=== PATIENT | male | born 1950 | race Two or more races ===

== ENCOUNTER 2018-12-27 12:00 | Inpatient (IN) | payer OTHER ==
[~2018-12-27] VITALS: Ht 162.6 cm; Wt 84.1 kg
[2018-12-27] MEDS ORDERED: SODIUM CHLORIDE 0.9% 1L BAG IV* STA (12:20)
[2018-12-27] MEDS ORDERED: IBUPROFEN 600 MG TAB PO ONE (12:30)
[2018-12-27] MEDS ORDERED: CEFTRIAXONE 1 GM/50 ML (PMX) 50 ML IVPB ONE (12:30)
[2018-12-27] MEDS ORDERED: SITA50TA2 PO (13:19)
[2018-12-27] MEDS ORDERED: LOSA25TA12 PO (13:20)
[2018-12-27] MEDS ORDERED: FENO160T13 PO (13:21)
[2018-12-27] MEDS ORDERED: OMEP20CA16 PO (13:21)
[2018-12-27] MEDS ORDERED: OXCA300T3 PO (13:22)
[2018-12-27] MEDS ORDERED: TOPI100T PO (13:23)
[2018-12-27] MEDS ORDERED: METO-319 PO (13:24)
[2018-12-27] MEDS ORDERED: ALEN70TA5 PO (13:24)
[2018-12-27] MEDS ORDERED: FINA5TAB4 PO (13:24)
[2018-12-27] MEDS ORDERED: MAGN400T28 PO (13:26)
[2018-12-27] MEDS ORDERED: POTASSIUM 595MG PO (13:26)
[2018-12-27] MEDS ORDERED: CHOL200056 PO (13:27)
[2018-12-27] MEDS ORDERED: MULTI PO (13:29)
[2018-12-27] MEDS ORDERED: B COMPLEX PO (13:29)
[2018-12-27] MEDS ORDERED: LACT1CAP52 PO (13:30)
[2018-12-27] MEDS ORDERED: OMEG1CAP90 PO (13:30)
[2018-12-27] MEDS ORDERED: [UNRECOGNIZED DRUG - OTHER] PO (13:32)
[2018-12-27] MEDS ORDERED: INUL1TAB4 PO (13:34)
--- NOTE | 2018-12-27 14:06 | ERD ---
ER Documentation Chief Complaint Chief Complaint SHAKINESS ALL NIGHT AND SOB - HX OF A FIB HPI 68-year-old man complains of tactile fever and chills since last night, patient has a history of atrial fibrillation and also complains of palpitations. He denies chest pain, no URI symptoms, no abdominal pain, no vomiting or diarrhea, no blood per rectum or melena. ROS All systems reviewed and are negative except as per history of present illness. Medications Home Meds Reported Medications Inulin/Chromium Picolinate (Fiber Gummies) 1 Each Tab.chew, 1 EACH PO DAILY, TAB.CHEW 12/27/18 [Herbal Prostate] No Conflict Check, 2 TAB PO DAILY 12/27/18 Lactobacillus Combo No.10 (Probiotic) 1 Each Capsule, 1 CAP PO DAILY, CAP 12/27/18 [place]-3 Fatty Acids/Fish Oil ([place] 3 1,000 mg Softgel) 1 Each Capsule, 1 EACH PO DAILY, CAP 12/27/18 Multivitamins* (Theragran*) 1 Tab Tab, 1 TAB PO DAILY, TAB 12/27/18 [B Complex 50MG] No Conflict Check, 1 TAB PO DAILY 12/27/18 Cholecalciferol (Vitamin D3) (Vitamin D-3) 2,000 Unit Tablet, 2000 UNIT PO DAILY, TAB 12/27/18 Magnesium Oxide* (Magnesium Oxide*) 400 Mg Tablet, 400 MG PO DAILY, TAB 12/27/18 [Potassium 595MG] No Conflict Check, 1 TAB PO BID 12/27/18 Finasteride* (Finasteride*) 5 Mg Tablet, 5 MG PO DAILY, TAB 12/27/18 Alendronate Sodium* (Fosamax*) 70 Mg Tablet, 70 MG PO Q7D, #4 TAB 12/27/18 Metoprolol Succinate* (Toprol XL*) 50 Mg Tab.er.24h, 50 MG PO DAILY, #30 TAB 12/27/18 Topiramate* (Topamax*) 100 Mg Tablet, 200 MG PO BID, TAB 12/27/18 Oxcarbazepine* (Trileptal*) 300 Mg Tablet, 900 MG PO BID, TAB 12/27/18 Omeprazole* (Omeprazole*) 20 Mg Capsule.dr, 20 MG PO BID, #60 CAP 12/27/18 Fenofibrate, Micronized* (Fenofibrate*) 160 Mg Tablet, 160 MG PO DAILY, TAB 12/27/18 Losartan Potassium* (Losartan Potassium*) 25 Mg Tablet, 25 MG PO DAILY, TAB 12/27/18 Sitagliptin* (Januvia*) 50 Mg Tablet, 50 MG PO DAILY, #30 TAB 12/27/18 Allergies Allergies: Coded Allergies: No Known Allergy (Unverified , 12/27/18) PMhx/Soc Hypertension, atrial fibrillation, BPH, gastritis History of Surgery: Yes (APPENDECTOMY , prostate surgery ) Anesthesia Reaction: No Hx Neurological Disorder: Yes (epilepsy ) Hx Respiratory Disorders: No Hx Cardiac Disorders: Yes (high cholesterol , htn , irregular heart beat ) Hx Psychiatric Problems: No Hx Miscellaneous Medical Probl: Yes (anxiety , dm , osteoporosis , ) Hx Alcohol Use: No Hx Substance Use: No Hx Tobacco Use: No (quit 15 yrs ago ) Smoking Status: Former smoker FmHx Family History: No diabetes Physical Exam Vitals Vital Signs Date Temp Pulse Resp B/P (MAP) Pulse Ox O2 O2 Flow FiO2 Time Delivery Rate 12/27/18 120 18 93/79 (84) 98 Nasal 2.0 15:30 Cannula 12/27/18 99.2 118 18 82/77 (79) 99 Nasal 2.0 15:00 Cannula 12/27/18 120 18 86/69 (75) 99 Nasal 2.0 14:30 Cannula 12/27/18 119 18 87/66 (73) 99 Nasal 2.0 14:00 Cannula 12/27/18 128 18 95/72 (80) 99 Nasal 2.0 12:45 Cannula 12/27/18 Nasal 2 12:27 Cannula 12/27/18 100.8 161 24 166/79 97 12:04 (108) Physical Exam Const: No acute distress, febrile HEENT: Dry mucous membranes, pink conjunctive a, no cervical spine deformity, no Kernig sign Resp: Lungs clear, no wheezing crackles or stridor Cardio: Tachycardic and regular, no murmurs Abd: Soft, non tender, no guarding or masses palpated Skin: No petechiae or rashes no ecchymosis, no hematomas Back: No midline or flank tenderness Ext: No cyanosis, or edema, calves symmetrical Neur: Awake and alert x3, no focal deficits or facial asymmetry, pupils equal round reactive to light Psych: Normal Mood and Affect Result Diagram: 12/27/18 1234 12/27/18 1234 Results 24 hrs Laboratory Tests Test 12/27/18 12:23 12/27/18 12:34 12/27/18 14:17 POC Venous Lactate 2.2 mmol/L 1.1 mmol/L White Blood Count 30.5 10^3/ul Red Blood Count 5.39 10^6/ul Hemoglobin 17.3 g/dl Hematocrit 51.8 % Mean Corpuscular Volume 96.1 fl Mean Corpuscular Hemoglobin 32.1 pg Mean Corpuscular Hemoglobin Concent 33.4 g/dl Red Cell Distribution Width 13.2 % Platelet Count 254 10^3/UL Mean Platelet Volume 10.1 fl Immature Granulocytes % 0.800 % Neutrophils % % Segmented Neutrophils % (Manual) 74 % Band Neutrophils % (Manual) 7 % Lymphocytes % % Lymphocytes % (Manual) 6 % Reactive Lymphocytes % (Manual) 1 % Monocytes % % Monocytes % (Manual) 12 % Eosinophils % % Basophils % % Nucleated Red Blood Cells % 0.0 /100WBC Immature Granulocytes # 0.230 10^3/ul Neutrophils # 10^3/ul Neutrophils # (Manual) 23.2 10^3/ul Band Neutrophils # 2.1 10^3/ul Lymphocytes (Manual) 1.8 10^3/ul Lymphocytes # 10^3/ul Reactive Lymphocytes # 0.3 10^3/ul Monocytes # 10^3/ul Monocytes # (Manual) 3.6 10^3/ul Eosinophils # 10^3/ul Basophils # 10^3/ul Nucleated Red Blood Cells # 10^3/ul Platelet Estimate NORMAL Polychromasia 3+ Anisocytosis 2+ Microcytosis 2+ Prothrombin Time 15.1 Sec Prothrombin Time Ratio 1.2 INR International Normalized Ratio 1.18 Activated Partial Thromboplast Time 29.7 Sec Urine Color BLUE Urine Clarity CLOUDY Urine pH 5.0 Urine Specific [place] 1.021 Urine Ketones TRACE mg/dL Urine Nitrite NEGATIVE mg/dL Urine Bilirubin NEGATIVE mg/dL Urine Urobilinogen NEGATIVE mg/dL Urine Leukocyte Esterase 2+ Gricelda/ul Urine Microscopic RBC 77 /HPF Urine Microscopic WBC > 182 /HPF Urine Squamous Epithelial Cells FEW /HPF Urine Mucus MANY /HPF Urine Hemoglobin 1+ mg/dL Urine Glucose NEGATIVE mg/dL Urine Total Protein 2+ mg/dl Sodium Level 142 mmol/L Potassium Level 4.8 mmol/L Chloride Level 109 mmol/L Carbon Dioxide Level 20 mmol/L Anion Gap 13 Blood Urea Nitrogen 20 mg/dl Creatinine 1.56 mg/dl Est Glomerular Filtrat Rate mL/min 45 mL/min Glucose Level 125 mg/dl Calcium Level 9.3 mg/dl Total Bilirubin 1.0 mg/dl Direct Bilirubin 0.00 mg/dl Indirect Bilirubin 1.0 mg/dl Aspartate Amino Transf (AST/SGOT) 30 IU/L Alanine Aminotransferase (ALT/SGPT) 22 IU/L Alkaline Phosphatase 100 IU/L Troponin I 0.047 ng/ml Total Protein 8.2 g/dl Albumin 4.4 g/dl Globulin 3.80 g/dl Albumin/Globulin Ratio 1.15 Lipase 61 U/L Current Medications Medications Dose Sig/Zoey Start Time Status Last (Trade) Ordered Route PRN Stop Time Admin Dose Reason Admin Sodium 3,000 ml BOLUS OVER 2 12/27/18 DC 12/27/18 Chloride HOURS STAT 12:20 12/27/18 12:35 (NS) IV* 12:30 Ibuprofen 600 mg ONCE ONCE 12/27/18 DC 12/27/18 (Motrin) PO 12:30 12/27/18 12:35 12:31 Ceftriaxone 50 ml @ ONCE ONCE 12/27/18 DC 12/27/18 Sodium 100 mls/hr IVPB 12:30 12/27/18 12:35 12:59 Sodium 1,000 ml @ Q1H ONCE 12/27/18 DC 12/27/18 Chloride 1,000 mls/hr IV 15:30 12/27/18 15:37 16:29 Sodium 1,000 ml @ Q10H IV 12/27/18 Chloride 100 mls/hr 15:53 IV Flush 3 ml PER 12/27/18 (NS 3 ml) PROTOCOL IV 16:00 Ondansetron 4 mg Q6H PRN 12/27/18 HCl (Zofran IV 16:00 Inj) NAUSEA/VOMITI NG 650 mg Q6H PRN 12/27/18 Acetaminophen PO .PAIN 1-3 16:00 (Tylenol OR TEMP Tab) 1 tab Q6H PRN 12/27/18 Acetaminophen PO .MOD PAIN 16:00 / 4-6 Hydrocodone Bitart ([place] (5/325)) Morphine 2 mg Q4H PRN 12/27/18 Sulfate IV .SEVERE 16:00 (morphine) PAIN 7-10 Docusate 100 mg Q12H PRN 12/27/18 Sodium PO 16:00 (Colace) .CONSTIPATION Zolpidem 5 mg QHS PRN 12/27/18 Tartrate PO .INSOMNIA 16:00 (Ambien) Ceftriaxone 50 ml @ Q24H IVPB 12/28/18 Sodium 100 mls/hr 12:00 Finasteride 5 mg DAILY PO 12/28/18 (Proscar) 09:00 Losartan 25 mg DAILY PO 12/28/18 Potassium 09:00 (Cozaar) Magnesium 400 mg DAILY PO 12/28/18 Oxide 09:00 (Mag-Ox 400) 1 tab DAILY PO 12/28/18 Multivitamins 09:00 Therapeutic (Theragran) 900 mg BID PO 12/27/18 Oxcarbazepine 21:00 (Trileptal) Topiramate 200 mg BID PO 12/27/18 (Topamax) 21:00 2,000 unit DAILY PO 12/28/18 DC Miscellaneous 09:00 12/28/18 Information 09:00 2,000 unit DAILY PO 12/28/18 Cholecalcifer 09:00 ol (Vitamin D) Procedures/MDM IV line was established patient was placed on school lunch monitor rhythm strip revealed a narrow complex tachycardia at 160 bpm with upright P and T waves. Patient was febrile, blood and urine cultures have been ordered results are pending I will follow-up EKG performed, read by me revealed supraventricular tachycardia at 158 bpm, normal axis, narrow QRS complex, no concerning ST elevations or depressions noted Chest X-ray 1V Interpreted by me: Soft Tissue: No acute abnormalities Bones: No acute abnormalities Mediastinum/Cardiac Silhouette/Lungs: No acute abnormalities I administered 4 L normal saline IV, ibuprofen 600 mg p.o. for fever, ceftriaxone 1 g IV CBC reveals a leukocytosis of 31, electrolytes revealed dehydration and acute kidney injury with a BUN/creatinine of 20/1.6, liver function tests normal, troponin negative, lactic acid elevated at 2.2, urine analysis positive for inf ection After 4 L normal saline, patient's SVT converted spontaneously. Patient has a normal sinus rhythm at 77 bpm at this time, normal axis, narrow QRS complex, no concerning ST elevations or depressions noted Patient's infectious symptoms have not stabilized and the patient is at risk of rapid decompensation. The patient will be admitted for careful hydration, antibiotic therapy, and infectious source control. SEVERE SEPSIS CRITERIA: Infectious source: Urinary tract infection End organ damage indicated by: [Lactate > 2.0 mmol/L Hypotension (SBP < 90 or >40 mmHG drop or MAP < 65) SEPSIS MANAGEMENT Time of recognition of sepsis: Upon arrival. Time of recognition of severe sepsis: No severe sepsis at this time. Time of recognition of septic shock: No septic shock at this time. 3 HOUR BUNDLE Blood cultures x 2 before broad-spectrum antibiotics: Yes 30 ml/kg NS bolus completed Initial lactate 2.2 Repeat lactate 1.1 SEPTIC SHOCK ASSESSMENT: No lactic acid > 4.0 No persistent hypotension (SBP < 90 or 40 mmHg drop, MAP < 65) despite 30 mL/kg IV fluid bolus VOLUME REASSESSMENT FOR SEPTIC SHOCK: Reevaluation Time: 1400 Temp 99 F, pulse 120 bpm, blood pressure 90/60 mmHg, oxygen saturation 100% Heart tachycardic and regular Lungs no crackles Skin warm & dry Cap Refill less than 2 seconds Peripheral pulses radially present PERSISTENT HYPOTENSION TREATMENT: Comfort care no Central line not Required Vasopressor started not required I considered further perfusion assessment with CVP measurement, SCVO2, bedside ultrasound volume assessment, passive leg raise, trial of further fluid bolus. And proceeded with 30 ml/kg fluid bolus of NSS, broad spectrum antibiotics, and admission. CRITICAL CARE: Critical care time 35 minutes, this was time separate from other billable proc edures. Emergent fluid management while maintaining close respiratory support. Provision of immediate and broad-spectrum antibiotic therapy. Simultaneous assessment for possible sources in order to direct targeted therapy. Consideration for invasive and chemical support to prevent cardiopulmonary collapse. Critical care time is independent of procedures performed. Accepting Care Team: Current data and ongoing care discussed. Time: Time of admission Primary Provider: Hospitalist Consulting: Infectious disease Outstanding Data: none Departure Diagnosis: Primary Impression: Sepsis Sepsis type: sepsis due to unspecified organism Qualified Codes: A41.9 - Sepsis, unspecified organism Additional Impressions: Acute UTI Acute dehydration SVT (supraventricular tachycardia) Condition: AMPARO Delong MD December 27, 2018 14:06
[2018-12-27] MEDS ORDERED: SOD CHLORIDE 0.9% 1,000 ML IV ONE (15:30)
[2018-12-27] MEDS ORDERED: ZOLPIDEM 5 MG TAB PO PRN (16:00)
[2018-12-27] MEDS ORDERED: ONDANSETRON 4 MG INJ IV PRN (16:00)
[2018-12-27] MEDS ORDERED: NACL 0.9% 3 ML SYG IV SCH (16:00)
[2018-12-27] MEDS ORDERED: DOCUSATE SODIUM 100 MG CAP PO PRN (16:00)
[2018-12-27] MEDS ORDERED: morphine 2 MG INJ IV PRN (16:00)
--- NOTE | 2018-12-27 16:38 | HP ---
Date/Time of Note Date/Time of Note DATE: 12/27/18 TIME: 16:33 Assessment/Plan VTE Prophylaxis SCD applied (from Nsg): Yes Pharmacological prophylaxis: NA/contraindicated Pharm contraindication: low risk/ambulating Lines/Catheters IV Catheter Type (from Nrsg): Saline Lock Assessment/Plan Hospital Course 1. Severe sepsis secondary to UTI Empiric Rocephin IV fluids Follow-up on cultures 2. History of BPH status post TURP 2 months ago Patient has had decreased urine output since a TURP Patient does follow-up with his urologist as an outpatient and last saw him yesterday, patient was noted to have a clot and irrigation was reportedly done in the office with patient developing significant pain Inpatient urological consultation Renal ultrasound to evaluate for hydronephrosis 3. Acute versus chronic kidney disease secondary to sepsis and/or obstruction IV fluids Renal ultrasound Defer need for Lua catheter placement to urology 4. Prediabetes Carb controlled diet Prophylaxis: SCDs Result Diagram: 12/27/18 1234 12/27/18 1234 Results 24hrs Laboratory Tests Test 12/27/18 12:23 12/27/18 12:34 12/27/18 14:17 POC Venous Lactate 2.2 *H 1.1 White Blood Count 30.5 H Red Blood Count 5.39 Hemoglobin 17.3 Hematocrit 51.8 Mean Corpuscular Volume 96.1 Mean Corpuscular Hemoglobin 32.1 Mean Corpuscular Hemoglobin Concent 33.4 Red Cell Distribution Width 13.2 Platelet Count 254 Mean Platelet Volume 10.1 Immature Granulocytes % 0.800 H Neutrophils % Segmented Neutrophils % (Manual) 74 Band Neutrophils % (Manual) 7 H Lymphocytes % Lymphocytes % (Manual) 6 L Reactive Lymphocytes % (Manual) 1 H Monocytes % Monocytes % (Manual) 12 H Eosinophils % Basophils % Nucleated Red Blood Cells % 0.0 Immature Granulocytes # 0.230 H Neutrophils # Neutrophils # (Manual) 23.2 H Band Neutrophils # 2.1 H Lymphocytes (Manual) 1.8 Lymphocytes # Reactive Lymphocytes # 0.3 H Monocytes # Monocytes # (Manual) 3.6 H Eosinophils # Basophils # Nucleated Red Blood Cells # Platelet Estimate NORMAL Polychromasia 3+ Anisocytosis 2+ Microcytosis 2+ Prothrombin Time 15.1 H Prothrombin Time Ratio 1.2 INR International Normalized Ratio 1.18 Activated Partial Thromboplast Time 29.7 Urine Color BLUE Urine Clarity CLOUDY A Urine pH 5.0 Urine Specific [place] 1.021 Urine Ketones TRACE A Urine Nitrite NEGATIVE Urine Bilirubin NEGATIVE Urine Urobilinogen NEGATIVE Urine Leukocyte Esterase 2+ H Urine Microscopic RBC 77 H Urine Microscopic WBC > 182 H Urine Squamous Epithelial Cells FEW Urine Mucus MANY A Urine Hemoglobin 1+ H Urine Glucose NEGATIVE Urine Total Protein 2+ H Sodium Level 142 Potassium Level 4.8 Chloride Level 109 Carbon Dioxide Level 20 L Anion Gap 13 Blood Urea Nitrogen 20 Creatinine 1.56 H Est Glomerular Filtrat Rate mL/min 45 L Glucose Level 125 Calcium Level 9.3 Total Bilirubin 1.0 Direct Bilirubin 0.00 Indirect Bilirubin 1.0 Aspartate Amino Transf (AST/SGOT) 30 Alanine Aminotransferase (ALT/SGPT) 22 Alkaline Phosphatase 100 Troponin I 0.047 Total Protein 8.2 H Albumin 4.4 Globulin 3.80 H Albumin/Globulin Ratio 1.15 Lipase 61 HPI/ROS Admit Date/Time Admit Date/Time December 27, 2018 Hx of Present Illness Patient is a 68-year-old male with a history of prediabetes and BPH status post TURP with Dr. Guanaco White 2 months ago. Patient states that since the TURP he has been urinating less, patient did see his urologist yesterday and reportedly had a clot in his urethra and bladder, patient had what sounds like irrigation done postop and patient became uncomfortable. Patient went home and developed fevers and chills as well as tachycardia, in the ER UA is consistent with a UTI and patient does have evidence of sepsis. Patient denies any suprapubic pain and is able to urinate a small amount, of note patient does not have a Lua catheter from home. Patient does report lower back pain which been present since the TURP 2 months ago. Patient has no other acute complaints at this time. ROS Constitutional: no complaints, improved Eyes: no complaints ENT: no complaints Respiratory: no complaints Cardiovascular: no complaints Gastrointestinal: no complaints Genitourinary: flank pain Musculoskeletal: no complaints Skin: no complaints Neurologic: no complaints Endocrine: no complaints Lymphatic: no complaints Psychological: no complaints, nl mood/affect Immunologic: no complaints PMH/Family/Social Past Medical History Prediabetes, BPH status post TURP Medications Current Medications Sodium Chloride 1,000 ml @ 100 mls/hr Q10H IV ; Start 12/27/18 at 15:53 IV Flush (NS 3 ml) 3 ml PER PROTOCOL IV ; Start 12/27/18 at 16:00 Ondansetron HCl (Zofran Inj) 4 mg Q6H PRN IV NAUSEA/VOMITING; Start 12/27/18 at 16:00 Acetaminophen (Tylenol Tab) 650 mg Q6H PRN PO .PAIN 1-3 OR TEMP; Start 12/27/18 at 16:00 Acetaminophen/ Hydrocodone Bitart ([place] (5/325)) 1 tab Q6H PRN PO .MOD PAIN 4- 6; Start 12/27/18 at 16:00 Morphine Sulfate (morphine) 2 mg Q4H PRN IV .SEVERE PAIN 7-10; Start 12/27/18 at 16:00 Docusate Sodium (Colace) 100 mg Q12H PRN PO .CONSTIPATION; Start 12/27/18 at 16:00 Zolpidem Tartrate (Ambien) 5 mg QHS PRN PO .INSOMNIA; Start 12/27/18 at 16:00 Ceftriaxone Sodium 50 ml @ 100 mls/hr Q24H IVPB ; Start 12/28/18 at 12:00 Finasteride (Proscar) 5 mg DAILY PO ; Start 12/28/18 at 09:00 Losartan Potassium (Cozaar) 25 mg DAILY PO ; Start 12/28/18 at 09:00 Magnesium Oxide (Mag-Ox 400) 400 mg DAILY PO ; Start 12/28/18 at 09:00 Multivitamins Therapeutic (Theragran) 1 tab DAILY PO ; Start 12/28/18 at 09:00 Oxcarbazepine (Trileptal) 900 mg BID PO ; Start 12/27/18 at 21:00 Topiramate (Topamax) 200 mg BID PO ; Start 12/27/18 at 21:00 Cholecalciferol (Vitamin D) 2,000 unit DAILY PO ; Start 12/28/18 at 09:00 Coded Allergies: No Known Allergy (Unverified , 12/27/18) Past Surgical History Appendectomy, TURP, tonsillectomy Family History Significant Family History: no pertinent family hx Social History Alcohol Use: rarely Smoking Status: Former smoker Drug Use: none Exam/Review of Systems Vital Signs Vitals Vital Signs Date Temp Pulse Resp B/P (MAP) Pulse Ox O2 O2 Flow FiO2 Time Delivery Rate 12/27/18 120 18 93/79 (84) 98 Nasal 2.0 15:30 Cannula 12/27/18 99.2 15:00 Exam Constitutional: alert, oriented Respiratory: clear to auscultation Cardiovascular: regular rate and rhythm Gastrointestinal: soft; No distended Musculoskeletal: nl extremities to inspection ALICIA LAINEZ December 27, 2018 16:38
[2018-12-27] MEDS ORDERED: SOD CHLORIDE 0.9% 1,000 ML IV STA (17:07)
[2018-12-27] MEDS: SOD CHLORIDE 0.9% 1,000 ML IV SCH (18:46)
[2018-12-27 20:00] VITALS: PULSE 74; Ht 162.6 cm; Wt 84.1 kg
[2018-12-27] MEDS ORDERED: LORAZEPAM 2 MG INJ IV PRN (22:00)
[2018-12-27] MEDS: TOPIRAMATE 100 MG TAB PO SCH (22:06)
[2018-12-27] MEDS: OXCARBAZEPINE 300 MG TAB PO SCH (22:06)
[2018-12-28] VITALS (14 sets, daily range): BP systolic 87–131; BP diastolic 52–82; PULSE 73–92; RESP 18–22
[2018-12-28] MEDS: ACETAMINOPHEN 325 MG TAB PO PRN ×2 (00:57→21:02)
[2018-12-28] MEDS: SOD CHLORIDE 0.9% 1,000 ML IV SCH ×3 (01:53→21:03)
[2018-12-28] MEDS: PANTOPRAZOLE (EC) 40 MG TAB PO SCH ×2 (05:46→17:41)
[2018-12-28] MEDS ORDERED: NON-FORMULARY/PATIENT OWN MED (Cholecalciferol (Vitamin D3) (Vitamin D-3) 2,000 UNIT) PO SCH (09:00)
[2018-12-28] MEDS: FISH OIL 1,000 MG CAP PO SCH (09:00)
[2018-12-28] MEDS: CHOLECALCIFEROL 2,000 UNIT CAP PO SCH (09:27)
[2018-12-28] MEDS: FINASTERIDE 5 MG TAB PO SCH (09:27)
[2018-12-28] MEDS: TOPIRAMATE 100 MG TAB PO SCH ×2 (09:27→21:02)
[2018-12-28] MEDS: MULTIVITAMINS THERAPEUTIC TAB PO SCH (09:27)
[2018-12-28] MEDS: LOSARTAN 25 MG TAB PO SCH (09:28)
[2018-12-28] MEDS: MAGNESIUM OXIDE 400 MG TAB PO SCH (09:28)
[2018-12-28] MEDS: OXCARBAZEPINE 300 MG TAB PO SCH ×2 (09:28→21:02)
[2018-12-28] MEDS: FENOFIBRATE 145 MG TAB PO SCH (09:35)
[2018-12-28] MEDS: HYDROCODONE/APAP (5/325) TAB PO PRN ×2 (09:43→16:04)
--- NOTE | 2018-12-28 11:19 | PN ---
Date/Time of Note Date/Time of Note DATE: 12/28/18 TIME: 11:17 Assessment/Plan VTE Prophylaxis Risk score (from Ns)>0 risk: 2 SCD applied (from Ns): Yes Pharmacological prophylaxis: NA/contraindicated Pharm contraindication: other (heamturia, blood clot re,merrill) Lines/Catheters IV C[facility] Type [facility]from [facility] Saline Lock Urinary Cath still in place: No Assessment/Plan Hospital Course Subjective: still with fever. Pain controlled by meds Objective: General: A&O x3, answering questions but very lethargic, warm to touch HEENT: NC/ AT. PERRL. EOM intact Neck: supple CVS: tachy. no murmurs. no pain on chest wall palpation Lungs: CTA b/l. no wheezing or rhonchi Abd: soft,mild suprapubic tenderness, +BS Ext: moving all extremities skin: no rashes Assessment and plan: 1. Sepsis secondary to urinary tract infection 2. Status post recent TURP 2 months ago for BPH with obstructive symptoms -Patient's procedure was complicated by reduced urinary output and severe pain, he was noted to have a clot and is status post in office irrigation and dilation the day prior to admission -Renal ultrasound was done and is unremarkable without evidence of calculi or obstructive uropathy. 3. Chronic seizure disorder -reported breakthrough seizures yesterday? 4. Acute renal insufficiency: Resolved 5. Hypophosphatemia 6. Chronic dyslipidemia 7. Hypertension with good control on losartan Plan Continue IV fluids Follow-up final urine cultures spoke with OP urologist Dr. White, patient was recently dilated in office, monitor PVR, only attempt de león if PVR is >250cc or patient not responding to therapy. otherwise, treat UTI and f/u with him in office o/p. Call anytime with questions [phone] Neurology consult EEG and seizure precautions Continue all other supportive care and pain control Further interventions per clinical course Result Diagram: 12/28/18 0811 12/28/18 0637 Results 24hrs Laboratory Tests Test 12/27/18 12:23 12/27/18 12:34 12/27/18 14:17 12/27/18 16:35 POC Venous Lactate 2.2 *H 1.1 White Blood Count 30.5 H Red Blood Count 5.39 Hemoglobin 17.3 Hematocrit 51.8 Mean Corpuscular Volume 96.1 Mean Corpuscular 32.1 Hemoglobin Mean Corpuscular 33.4 Hemoglobin Concent Red Cell Distribution 13.2 Width Platelet Count 254 Mean Platelet Volume 10.1 Immature Granulocytes % 0.800 H Neutrophils % Segmented Neutrophils 74 % (Manual) Band Neutrophils % 7 H (Manual) Lymphocytes % Lymphocytes % (Manual) 6 L Reactive Lymphocytes 1 H % (Manual) Monocytes % Monocytes % (Manual) 12 H Eosinophils % Basophils % Nucleated Red Blood 0.0 Cells % Immature Granulocytes # 0.230 H Neutrophils # Neutrophils # (Manual) 23.2 H Band Neutrophils # 2.1 H Lymphocytes (Manual) 1.8 Lymphocytes # Reactive Lymphocytes # 0.3 H Monocytes # Monocytes # (Manual) 3.6 H Eosinophils # Basophils # Nucleated Red Blood Cells # Platelet Estimate NORMAL Polychromasia 3+ Anisocytosis 2+ Microcytosis 2+ Prothrombin Time 15.1 H Prothrombin Time Ratio 1.2 INR International 1.18 Normalized Ratio Activated 29.7 Partial Thromboplast Time Urine Color BLUE Urine Clarity CLOUDY A Urine pH 5.0 Urine Specific [place] 1.021 Urine Ketones TRACE A Urine Nitrite NEGATIVE Urine Bilirubin NEGATIVE Urine Urobilinogen NEGATIVE Urine Leukocyte Esterase 2+ H Urine Microscopic RBC 77 H Urine Microscopic WBC > 182 H Urine Squamous FEW Epithelial Cells Urine Mucus MANY A Urine Hemoglobin 1+ H Urine Glucose NEGATIVE Urine Total Protein 2+ H Sodium Level 142 Potassium Level 4.8 Chloride Level 109 Carbon Dioxide Level 20 L Anion Gap 13 Blood Urea Nitrogen 20 Creatinine 1.56 H Est Glomerular Filtrat 45 L Rate mL/min Glucose Level 125 Calcium Level 9.3 Total Bilirubin 1.0 Direct Bilirubin 0.00 Indirect Bilirubin 1.0 Aspartate Amino 30 Transf (AST/SGOT) Alanine 22 Aminotransferase (ALT/SG PT) Alkaline Phosphatase 100 Troponin I 0.047 Total Protein 8.2 H Albumin 4.4 Globulin 3.80 H Albumin/Globulin Ratio 1.15 Lipase 61 Lactic Acid Level 0.8 Test 12/28/18 06:37 12/28/18 08:11 Sodium Level 143 Potassium Level 4.0 Chloride Level 117 H Carbon Dioxide Level 18 L Anion Gap 8 Blood Urea Nitrogen 14 Creatinine 0.91 Est Glomerular Filtrat > 60 Rate mL/min Glucose Level 82 # Hemoglobin A1c 4.7 Calcium Level 7.8 L Phosphorus Level 2.0 L Magnesium Level 1.8 White Blood Count 13.0 #H Red Blood Count 4.45 L Hemoglobin 14.1 Hematocrit 44.8 Mean Corpuscular Volume 100.7 Mean Corpuscular 31.7 Hemoglobin Mean Corpuscular 31.5 L Hemoglobin Concent Red Cell Distribution 13.4 Width Platelet Count 128 #L Mean Platelet Volume 9.4 Immature Granulocytes % 0.300 Neutrophils % 83.3 H Lymphocytes % 8.2 L Monocytes % 7.8 Eosinophils % 0.1 Basophils % 0.3 Nucleated Red Blood 0.0 Cells % Immature Granulocytes # 0.040 H Neutrophils # 10.8 H Lymphocytes # 1.1 Monocytes # 1.0 H Eosinophils # 0.0 Basophils # 0.0 Nucleated Red Blood 0.0 Cells # Exam/Review of Systems Exam Vitals Vital Signs Date Temp Pulse Resp B/P (MAP) Pulse Ox O2 O2 Flow FiO2 Time Delivery Rate 12/28/18 98.0 92 22 122/73 96 08:44 (89) 12/28/18 Nasal 04:31 Cannula 12/27/18 2.0 20:00 Intake and Output 12/27/18 12/27/18 12/28/18 1515:00 23:00 07:00 IntakeIntake Total 3050 ml 2000 ml 250 ml OutputOutput Total 650 ml BalanceBalance 3050 ml 2000 ml -400 ml Results Results 24hrs Laboratory Tests Test 12/27/18 12:23 12/27/18 12:34 12/27/18 14:17 12/27/18 16:35 POC Venous Lactate 2.2 *H 1.1 White Blood Count 30.5 H Red Blood Count 5.39 Hemoglobin 17.3 Hematocrit 51.8 Mean Corpuscular Volume 96.1 Mean Corpuscular 32.1 Hemoglobin Mean Corpuscular 33.4 Hemoglobin Concent Red Cell Distribution 13.2 Width Platelet Count 254 Mean Platelet Volume 10.1 Immature Granulocytes % 0.800 H Neutrophils % Segmented Neutrophils 74 % (Manual) Band Neutrophils % 7 H (Manual) Lymphocytes % Lymphocytes % (Manual) 6 L Reactive Lymphocytes 1 H % (Manual) Monocytes % Monocytes % (Manual) 12 H Eosinophils % Basophils % Nucleated Red Blood 0.0 Cells % Immature Granulocytes # 0.230 H Neutrophils # Neutrophils # (Manual) 23.2 H Band Neutrophils # 2.1 H Lymphocytes (Manual) 1.8 Lymphocytes # Reactive Lymphocytes # 0.3 H Monocytes # Monocytes # (Manual) 3.6 H Eosinophils # Basophils # Nucleated Red Blood Cells # Platelet Estimate NORMAL Polychromasia 3+ Anisocytosis 2+ Microcytosis 2+ Prothrombin Time 15.1 H Prothrombin Time Ratio 1.2 INR International 1.18 Normalized Ratio Activated 29.7 Partial Thromboplast Time Urine Color BLUE Urine Clarity CLOUDY A Urine pH 5.0 Urine Specific [place] 1.021 Urine Ketones TRACE A Urine Nitrite NEGATIVE Urine Bilirubin NEGATIVE Urine Urobilinogen NEGATIVE Urine Leukocyte Esterase 2+ H Urine Microscopic RBC 77 H Urine Microscopic WBC > 182 H Urine Squamous FEW Epithelial Cells Urine Mucus MANY A Urine Hemoglobin 1+ H Urine Glucose NEGATIVE Urine Total Protein 2+ H Sodium Level 142 Potassium Level 4.8 Chloride Level 109 Carbon Dioxide Level 20 L Anion Gap 13 Blood Urea Nitrogen 20 Creatinine 1.56 H Est Glomerular Filtrat 45 L Rate mL/min Glucose Level 125 Calcium Level 9.3 Total Bilirubin 1.0 Direct Bilirubin 0.00 Indirect Bilirubin 1.0 Aspartate Amino 30 Transf (AST/SGOT) Alanine 22 Aminotransferase (ALT/SG PT) Alkaline Phosphatase 100 Troponin I 0.047 Total Protein 8.2 H Albumin 4.4 Globulin 3.80 H Albumin/Globulin Ratio 1.15 Lipase 61 Lactic Acid Level 0.8 Test 12/28/18 06:37 12/28/18 08:11 Sodium Level 143 Potassium Level 4.0 Chloride Level 117 H Carbon Dioxide Level 18 L Anion Gap 8 Blood Urea Nitrogen 14 Creatinine 0.91 Est Glomerular Filtrat > 60 Rate mL/min Glucose Level 82 # Hemoglobin A1c 4.7 Calcium Level 7.8 L Phosphorus Level 2.0 L Magnesium Level 1.8 White Blood Count 13.0 #H Red Blood Count 4.45 L Hemoglobin 14.1 Hematocrit 44.8 Mean Corpuscular Volume 100.7 Mean Corpuscular 31.7 Hemoglobin Mean Corpuscular 31.5 L Hemoglobin Concent Red Cell Distribution 13.4 Width Platelet Count 128 #L Mean Platelet Volume 9.4 Immature Granulocytes % 0.300 Neutrophils % 83.3 H Lymphocytes % 8.2 L Monocytes % 7.8 Eosinophils % 0.1 Basophils % 0.3 Nucleated Red Blood 0.0 Cells % Immature Granulocytes # 0.040 H Neutrophils # 10.8 H Lymphocytes # 1.1 Monocytes # 1.0 H Eosinophils # 0.0 Basophils # 0.0 Nucleated Red Blood 0.0 Cells # Medications Medication Current Medications Sodium Chloride 1,000 ml @ 100 mls/hr Q10H IV Last administered on 12/27/18 18:46; Admin Dose 100 MLS/HR; Start 12/27/18 at 15:53 IV Flush (NS 3 ml) 3 ml PER PROTOCOL IV ; Start 12/27/18 at 16:00 Ondansetron HCl (Zofran Inj) 4 mg Q6H PRN IV NAUSEA/VOMITING; Start 12/27/18 at 16:00 Acetaminophen (Tylenol Tab) 650 mg Q6H PRN PO .PAIN 1-3 OR TEMP Last administered on 12/28/18 00:57; Admin Dose 650 MG; Start 12/27/18 at 16:00 Acetaminophen/ Hydrocodone Bitart ([place] (5/325)) 1 tab Q6H PRN PO .MOD PAIN 4- 6 Last administered on 12/28/18 09:43; Admin Dose 1 TAB; Start 12/27/18 at 16:00 Morphine Sulfate (morphine) 2 mg Q4H PRN IV .SEVERE PAIN 7-10; Start 12/27/18 at 16:00 Docusate Sodium (Colace) 100 mg Q12H PRN PO .CONSTIPATION; Start 12/27/18 at 16:00 Zolpidem Tartrate (Ambien) 5 mg QHS PRN PO .INSOMNIA; Start 12/27/18 at 16:00 Ceftriaxone Sodium 50 ml @ 100 mls/hr Q24H IVPB ; Start 12/28/18 at 12:00 Finasteride (Proscar) 5 mg DAILY PO Last administered on 12/28/18 09:27; Admin Dose 5 MG; Start 12/28/18 at 09:00 Losartan Potassium (Cozaar) 25 mg DAILY PO Last administered on 12/28/18 09:28; Admin Dose 25 MG; Start 12/28/18 at 09:00 Magnesium Oxide (Mag-Ox 400) 400 mg DAILY PO Last administered on 12/28/18 09:28; Admin Dose 400 MG; Start 12/28/18 at 09:00 Multivitamins Therapeutic (Theragran) 1 tab DAILY PO Last administered on 12/28/18 09:27; Admin Dose 1 TAB; Start 12/28/18 at 09:00 Oxcarbazepine (Trileptal) 900 mg BID PO Last administered on 12/28/18 09:28; Admin Dose 900 MG; Start 12/27/18 at 21:00 Topiramate (Topamax) 200 mg BID PO Last administered on 12/28/18at 09:27; Admin Dose 200 MG; Start 12/27/18 at 21:00 Cholecalciferol (Vitamin D) 2,000 unit DAILY PO Last administered on 12/28/18at 09:27; Admin Dose 2,000 UNIT; Start 12/28/18 at 09:00 Fenofibrate (Tricor) 145 mg DAILY PO Last administered on 12/28/18at 09:35; Admin Dose 145 MG; Start 12/28/18 at 09:00 Fish Oil (Fish Oil) 1,000 mg DAILY PO ; Start 12/28/18 at 09:00 Pantoprazole (Protonix Tab) 40 mg BID@0600,1800 PO Last administered on 12/28/18at 05:46; Admin Dose 40 MG; Start 12/28/18 at 06:00 Lorazepam (Ativan) 2 mg Q10M PRN IV seizure; Start 12/27/18 at 22:00 STU KENNEDY December 28, 2018 11:19
[2018-12-28] MEDS ORDERED: POTASSIUM PHOSPHATE 15 MM in SOD CHLORIDE 0.9% 250 ML IVPB ONE (12:30)
[2018-12-28] MEDS: CEFTRIAXONE 1 GM/50 ML (PMX) 50 ML IVPB SCH (12:49)
--- NOTE | 2018-12-28 15:55 | CONS ---
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 He was noted on 12/27 to have a generalized convulsion that was self-limited, for which neurology is consulted. It is likely that his current infection is lowering his seizure threshold. P: Obtain CTH for further characterization Add trileptal level Ok to cont Trileptal and topamax per ops for now, pending the abov Start klonopin 0.5mg BID in the interim, pending the trileptal level Ativan IV PRN prolonged seizure or for cluster Cont other medical management per primary Will follow clinically Consultation Date/Type/Reason Admit Date/Time December 27, 2018 Type of Consult Neurology Reason for Consultation breakthrough seizures Requesting Provider: STU KENNEDY Date/Time of Note DATE: 12/28/18 TIME: 15:55 Hx of Present Illness 68 yo M with hx of epilepsy, BPH s/p TURP and other comorbidities who presents for evaluation of fevers and low BP. History was obtained from and chart review as pt is a limited historian. The stated that the pt had an episode last night (11/27) of unresponsiveness, where he had a staring spell and his upper extremities became stiff. She stated it that it lasted for maybe 30 seconds to a minute before spontaneously resolving. He reportedly has a hx of seizures for which he takes topamax and trileptal. The states that he is compliant with his medications as she prepares them and administers them herself. It is additionally elsewhere noted: Hx of Present Illness Patient is a 68-year-old male with a history of prediabetes and BPH status post TURP with Dr. Guanaco White 2 months ago. Patient states that since the TURP he has been urinating less, patient did see his urologist yesterday and reportedly had a clot in his urethra and bladder, patient had what sounds like irrigation done postop and patient became uncomfortable. Patient went home and developed fevers and chills as well as tachycardia, in the ER UA is consistent with a UTI and patient does have evidence of sepsis. Patient denies any suprapubic pain and is able to urinate a small amount, of note patient does not have a Lua catheter from home. Patient does report lower back pain which been present since the TURP 2 months ago. Patient has no other acute complaints at this time. negative unless noted otherwise in HPI Exam/Review of Systems Exam Vitals Vital Signs Date Temp Pulse Resp B/P (MAP) Pulse Ox O2 O2 Flow FiO2 Time Delivery Rate 12/28/18 99.0 79 22 125/82 96 Nasal 2.0 15:49 (96) Cannula Intake and Output 12/27/18 12/27/18 12/28/18 1515:00 23:00 07:00 IntakeIntake Total 3050 ml 2000 ml 250 ml OutputOutput Total 650 ml BalanceBalance 3050 ml 2000 ml -400 ml Exam PE: Gen Appearance: No Apparent Distress HEENT: Normocephalic Cardiovascular: Regular rate Lungs: Clear bilaterally Abdomen: Soft Extremities: Dry NE: The patient was asleep, though arousable to voice. Grossly oriented. Language was normal. Fund of knowledge was adequate. Pupils were equal and reactive to light. There was no afferent pupillary defect. Visual sahu were normal. Funduscopic examination was limited. Extra-ocular movements were full. Ptosis was absent. There was no nystagmus. Facial sensation was normal. Face was symmetric with normal strength. Hearing was intact. Palate movements were normal. Neck strength was normal. There was normal tongue bulk and speed of movement. Tone was normal. Muscle bulk was normal. I did not see fasciculations. Arms and legs were mildly weak, symmetrically. Vibration sensation was normal. Temperature and pinprick sensation was normal. Rapid alternating movements were normal. There was no dysmetria. There was no intention tremor. Gait was deferred due to bedrest. Arm and leg reflexes were 2+ and symmetric. Cornejo's sign was absent. Plantar responses were flexor. Results Result Diagram: 12/28/18 0811 12/28/18 0637 Results 24hrs Laboratory Tests Test 12/27/18 16:35 12/28/18 06:37 12/28/18 08:11 Lactic Acid Level 0.8 Sodium Level 143 Potassium Level 4.0 Chloride Level 117 H Carbon Dioxide Level 18 L Anion Gap 8 Blood Urea Nitrogen 14 Creatinine 0.91 Est Glomerular Filtrat Rate mL/min > 60 Glucose Level 82 # Hemoglobin A1c 4.7 Calcium Level 7.8 L Phosphorus Level 2.0 L Magnesium Level 1.8 White Blood Count 13.0 #H Red Blood Count 4.45 L Hemoglobin 14.1 Hematocrit 44.8 Mean Corpuscular Volume 100.7 Mean Corpuscular Hemoglobin 31.7 Mean Corpuscular Hemoglobin Concent 31.5 L Red Cell Distribution Width 13.4 Platelet Count 128 #L Mean Platelet Volume 9.4 Immature Granulocytes % 0.300 Neutrophils % 83.3 H Lymphocytes % 8.2 L Monocytes % 7.8 Eosinophils % 0.1 Basophils % 0.3 Nucleated Red Blood Cells % 0.0 Immature Granulocytes # 0.040 H Neutrophils # 10.8 H Lymphocytes # 1.1 Monocytes # 1.0 H Eosinophils # 0.0 Basophils # 0.0 Nucleated Red Blood Cells # 0.0 Medications Medication Current Medications Sodium Chloride 1,000 ml @ 100 mls/hr Q10H IV Last administered on 12/28/18at 12:50; Admin Dose 100 MLS/HR; Start 12/27/18 at 15:53 IV Flush (NS 3 ml) 3 ml PER PROTOCOL IV ; Start 12/27/18 at 16:00 Ondansetron HCl (Zofran Inj) 4 mg Q6H PRN IV NAUSEA/VOMITING; Start 12/27/18 at 16:00 Acetaminophen (Tylenol Tab) 650 mg Q6H PRN PO .PAIN 1-3 OR TEMP Last administered on 12/28/18at 00:57; Admin Dose 650 MG; Start 12/27/18 at 16:00 Acetaminophen/ Hydrocodone Bitart ([place] (5/325)) 1 tab Q6H PRN PO .MOD PAIN 4- 6 Last administered on 12/28/18at 09:43; Admin Dose 1 TAB; Start 12/27/18 at 16:00 Morphine Sulfate (morphine) 2 mg Q4H PRN IV .SEVERE PAIN 7-10; Start 12/27/18 at 16:00 Docusate Sodium (Colace) 100 mg Q12H PRN PO .CONSTIPATION; Start 12/27/18 at 16:00 Zolpidem Tartrate (Ambien) 5 mg QHS PRN PO .INSOMNIA; Start 12/27/18 at 16:00 Ceftriaxone Sodium 50 ml @ 100 mls/hr Q24H IVPB Last administered on 12/28/18at 12:49; Admin Dose 100 MLS/HR; Start 12/28/18 at 12:00 Finasteride (Proscar) 5 mg DAILY PO Last administered on 12/28/18 09:27; Admin Dose 5 MG; Start 12/28/18 at 09:00 Losartan Potassium (Cozaar) 25 mg DAILY PO Last administered on 12/28/18 09:28; Admin Dose 25 MG; Start 12/28/18 at 09:00 Magnesium Oxide (Mag-Ox 400) 400 mg DAILY PO Last administered on 12/28/18 09: 28; Admin Dose 400 MG; Start 12/28/18 at 09:00 Multivitamins Therapeutic (Theragran) 1 tab DAILY PO Last administered on 12/28/18 09:27; Admin Dose 1 TAB; Start 12/28/18 at 09:00 Oxcarbazepine (Trileptal) 900 mg BID PO Last administered on 12/28/18 09:28; Admin Dose 900 MG; Start 12/27/18 at 21:00 Topiramate (Topamax) 200 mg BID PO Last administered on 12/28/18 09:27; Admin Dose 200 MG; Start 12/27/18 at 21:00 Cholecalciferol (Vitamin D) 2,000 unit DAILY PO Last administered on 12/28/18 09:27; Admin Dose 2,000 UNIT; Start 12/28/18 at 09:00 Fenofibrate (Tricor) 145 mg DAILY PO Last administered on 12/28/18 09:35; Admin Dose 145 MG; Start 12/28/18 at 09:00 Fish Oil (Fish Oil) 1,000 mg DAILY PO ; Start 12/28/18 at 09:00 Pantoprazole (Protonix Tab) 40 mg BID@0600,1800 PO Last administered on 05:46; Admin Dose 40 MG; Start 12/28/18 at 06:00 Lorazepam (Ativan) 2 mg Q10M PRN IV seizure; Start 12/27/18 at 22:00 Potassium Phosphate 15 mm/ Sodium Chloride 255 ml @ 63.75 mls/ hr ONCE ONCE IVPB Last administered on 12/28/18 15:25; Admin Dose 63.75 MLS/HR; Start 12/28/18 at 12:30; Stop 12/28/18 at 16:29 Past Medical History reviewed Home Meds Reported Medications Inulin/Chromium Picolinate (Fiber Gummies) 1 Each Tab.chew, 1 EACH PO DAILY, TAB .CHEW 12/27/18 [Herbal Prostate] No Conflict Check, 2 TAB PO DAILY 12/27/18 Lactobacillus Combo No.10 (Probiotic) 1 Each Capsule, 1 CAP PO DAILY, CAP 12/27/18 [place]-3 Fatty Acids/Fish Oil ([place] 3 1,000 mg Softgel) 1 Each Capsule, 1 EACH PO DAILY, CAP 12/27/18 Multivitamins* (Theragran*) 1 Tab Tab, 1 TAB PO DAILY, TAB 12/27/18 [B Complex 50MG] No Conflict Check, 1 TAB PO DAILY 12/27/18 Cholecalciferol (Vitamin D3) (Vitamin D-3) 2,000 Unit Tablet, 2000 UNIT PO DAILY, TAB 12/27/18 Magnesium Oxide* (Magnesium Oxide*) 400 Mg Tablet, 400 MG PO DAILY, TAB 12/27/18 [Potassium 595MG] No Conflict Check, 1 TAB PO BID 12/27/18 Finasteride* (Finasteride*) 5 Mg Tablet, 5 MG PO DAILY, TAB 12/27/18 Alendronate Sodium* (Fosamax*) 70 Mg Tablet, 70 MG PO Q7D, #4 TAB 12/27/18 Metoprolol Succinate* (Toprol XL*) 50 Mg Tab.er.24h, 50 MG PO DAILY, #30 TAB 12/27/18 Topiramate* (Topamax*) 100 Mg Tablet, 200 MG PO BID, TAB 12/27/18 Oxcarbazepine* (Trileptal*) 300 Mg Tablet, 900 MG PO BID, TAB 12/27/18 Omeprazole* (Omeprazole*) 20 Mg Capsule.dr, 20 MG PO BID, #60 CAP 12/27/18 Fenofibrate, Micronized* (Fenofibrate*) 160 Mg Tablet, 160 MG PO DAILY, TAB 12/27/18 Losartan Potassium* (Losartan Potassium*) 25 Mg Tablet, 25 MG PO DAILY, TAB 12/27/18 Sitagliptin* (Januvia*) 50 Mg Tablet, 50 MG PO DAILY, #30 TAB 12/27/18 Medications Current Medications Sodium Chloride 1,000 ml @ 100 mls/hr Q10H IV Last administered on 12/28/18at 12:50; Admin Dose 100 MLS/HR; Start 5/7/19 at 15:53 IV Flush (NS 3 ml) 3 ml PER PROTOCOL IV ; Start 12/27/18 at 16:00 Ondansetron HCl (Zofran Inj) 4 mg Q6H PRN IV NAUSEA/VOMITING; Start 12/27/18 at 16:00 Acetaminophen (Tylenol Tab) 650 mg Q6H PRN PO .PAIN 1-3 OR TEMP Last administered on 12/28/18 00:57; Admin Dose 650 MG; Start 12/27/18 at 16:00 Acetaminophen/ Hydrocodone Bitart ([place] (5/325)) 1 tab Q6H PRN PO .MOD PAIN 4- 6 Last administered on 12/28/18 09:43; Admin Dose 1 TAB; Start 12/27/18 at 16:00 Morphine Sulfate (morphine) 2 mg Q4H PRN IV .SEVERE PAIN 7-10; Start 12/27/18 at 16:00 Docusate Sodium (Colace) 100 mg Q12H PRN PO .CONSTIPATION; Start 12/27/18 at 16:00 Zolpidem Tartrate (Ambien) 5 mg QHS PRN PO .INSOMNIA; Start 12/27/18 at 16:00 Ceftriaxone Sodium 50 ml @ 100 mls/hr Q24H IVPB Last administered on 12/28/18 12:49; Admin Dose 100 MLS/HR; Start 12/28/18 at 12:00 Finasteride (Proscar) 5 mg DAILY PO Last administered on 12/28/18 09:27; Admin Dose 5 MG; Start 12/28/18 at 09:00 Losartan Potassium (Cozaar) 25 mg DAILY PO Last administered on 12/28/18 09:28; Admin Dose 25 MG; Start 12/28/18 at 09:00 Magnesium Oxide (Mag-Ox 400) 400 mg DAILY PO Last administered on 12/28/18 09:28; Admin Dose 400 MG; Start 12/28/18 at 09:00 Multivitamins Therapeutic (Theragran) 1 tab DAILY PO Last administered on 12/28/18 09:27; Admin Dose 1 TAB; Start 12/28/18 at 09:00 Oxcarbazepine (Trileptal) 900 mg BID PO Last administered on 12/28/18 09:28; Admin Dose 900 MG; Start 12/27/18 at 21:00 Topiramate (Topamax) 200 mg BID PO Last administered on 12/28/18at 09:27; Admin Dose 200 MG; Start 12/27/18 at 21:00 Cholecalciferol (Vitamin D) 2,000 unit DAILY PO Last administered on 12/28/18at 09:27; Admin Dose 2,000 UNIT; Start 12/28/18 at 09:00 Fenofibrate (Tricor) 145 mg DAILY PO Last administered on 12/28/18at 09:35; Admin Dose 145 MG; Start 12/28/18 at 09:00 Fish Oil (Fish Oil) 1,000 mg DAILY PO ; Start 12/28/18 at 09:00 Pantoprazole (Protonix Tab) 40 mg BID@0600,1800 PO Last administered on 12/28/18at 05:46; Admin Dose 40 MG; Start 12/28/18 at 06:00 Lorazepam (Ativan) 2 mg Q10M PRN IV seizure; Start 12/27/18 at 22:00 Potassium Phosphate 15 mm/ Sodium Chloride 255 ml @ 63.75 mls/ hr ONCE ONCE IVPB Last administered on 12/28/18at 15:25; Admin Dose 63.75 MLS/HR; Start 12/28/18 at 12:30; Stop 12/28/18 at 16:29 Allergies: Coded Allergies: No Known Allergy (Unverified , 12/27/18) Past Surgical History reviewed Social History reviewed Alcohol Use: rarely Smoking Status: Former smoker Drug Use: none NAZ MEDLEY NP December 28, 2018 15:55 CLARE LAMB December 29, 2018 06:32
[2018-12-28] MEDS: clonAZEPAM 0.5 MG TAB PO SCH (21:02)
[2018-12-29] VITALS (14 sets, daily range): BP systolic 112–136; BP diastolic 70–92; PULSE 77–144; RESP 16–19
[2018-12-29] MEDS: SOD CHLORIDE 0.9% 1,000 ML IV SCH (04:45)
[2018-12-29] MEDS: PANTOPRAZOLE (EC) 40 MG TAB PO SCH (04:45)
[2018-12-29] MEDS: FISH OIL 1,000 MG CAP PO SCH ×2 (08:59→09:00)
[2018-12-29] MEDS: MULTIVITAMINS THERAPEUTIC TAB PO SCH (09:00)
[2018-12-29] MEDS: FINASTERIDE 5 MG TAB PO SCH (09:00)
[2018-12-29] MEDS: OXCARBAZEPINE 300 MG TAB PO SCH ×2 (09:01→21:42)
[2018-12-29] MEDS: CHOLECALCIFEROL 2,000 UNIT CAP PO SCH (09:08)
[2018-12-29] MEDS: TOPIRAMATE 100 MG TAB PO SCH ×2 (09:08→21:43)
[2018-12-29] MEDS: FENOFIBRATE 145 MG TAB PO SCH (09:08)
[2018-12-29] MEDS: MAGNESIUM OXIDE 400 MG TAB PO SCH (09:08)
[2018-12-29] MEDS: clonAZEPAM 0.5 MG TAB PO SCH (09:17)
[2018-12-29] MEDS: LOSARTAN 25 MG TAB PO SCH (09:17)
--- NOTE | 2018-12-29 11:17 | PN ---
Date/Time of Note Date/Time of Note DATE: 12/29/18 TIME: 11:13 Assessment/Plan VTE Prophylaxis Risk score (from Ns)>0 risk: 2 SCD applied (from Ns): Yes Pharmacological prophylaxis: heparin Lines/Catheters IV C[facility]ter Type [facility]from [facility]): Saline Lock Urinary Cath still in place: No Assessment/Plan Hospital Course Subjective: still lethargic and weak, pain better, PVRs noted, no more fever since late yesterday Objective: General: sleeping, arousable, still lethargic, HEENT: NC/ AT. PERRL. EOM intact Neck: supple CVS: tachy. no murmurs. no pain on chest wall palpation Lungs: CTA b/l. no wheezing or rhonchi Abd: soft, NT +BS Ext: moving all extremities skin: no rashes Assessment and plan: 1. Sepsis secondary to urinary tract infection: improved -urine cultures growing E. coli, resistance to fluoroquinolones and ampicillin only 2. Status post recent TURP 2 months ago for BPH with obstructive symptoms -Patient's procedure was complicated by reduced urinary output and severe pain, he was noted to have a clot and is status post in office irrigation and dilation the day prior to admission -Renal ultrasound was done and is unremarkable without evidence of calculi or obstructive uropathy. 3. Chronic seizure disorder -reported breakthrough seizures yesterday December 27, 2018, no further seizure events or concern for seizure events since then -Patient's refusing CT brain recommended by neurology 4. Acute renal insufficiency: Resolved 5. Hypophosphatemia: Repleted 6. Chronic dyslipidemia 7. Hypertension with good control on losartan Plan Continue IV fluids spoke with OP urologist Dr. White, patient was recently dilated in office, monitor PVR, only attempt de león if PVR is >250cc or patient not responding to therapy. otherwise, treat UTI and f/u with him in office o/p. Call anytime with questions [phone] Limit all sedating drugs PT eval Continue seizure precautions Continue all other supportive care and pain control Further interventions per clinical course Transfer to [facility] in anticipation for discharge home tomorrow on oral antibiotics Result Diagram: 12/29/18 0835 12/29/18 0835 Results 24hrs Laboratory Tests Test 12/29/18 08:35 White Blood Count 5.8 # Red Blood Count 4.29 L Hemoglobin 13.6 L Hematocrit 40.9 L Mean Corpuscular Volume 95.3 Mean Corpuscular Hemoglobin 31.7 Mean Corpuscular Hemoglobin Concent 33.3 Red Cell Distribution Width 13.4 Platelet Count 141 Mean Platelet Volume 9.6 Immature Granulocytes % 0.300 Neutrophils % 73.9 Lymphocytes % 14.3 L Monocytes % 11.1 H Eosinophils % 0.2 Basophils % 0.2 Nucleated Red Blood Cells % 0.0 Immature Granulocytes # 0.020 Neutrophils # 4.3 Lymphocytes # 0.8 Monocytes # 0.6 Eosinophils # 0.0 Basophils # 0.0 Nucleated Red Blood Cells # 0.0 Sodium Level 140 Potassium Level 4.0 Chloride Level 115 H Carbon Dioxide Level 18 L Anion Gap 7 Blood Urea Nitrogen 11 Creatinine 0.89 Est Glomerular Filtrat Rate mL/min > 60 Glucose Level 103 Calcium Level 7.8 L Magnesium Level 1.9 Exam/Review of Systems Exam Vitals Vital Signs Date Temp Pulse Resp B/P (MAP) Pulse Ox O2 O2 Flow FiO2 Time Delivery Rate 12/29/18 87 08:38 12/29/18 98.8 18 136/86 98 07:33 (103) 12/28/18 Nasal 2.0 20:00 Cannula Intake and Output 12/28/18 12/28/18 12/29/18 1515:00 23:00 07:00 IntakeIntake Total 50 ml 420 ml 120 ml OutputOutput Total 700 ml BalanceBalance 50 ml 420 ml -580 ml Results Results 24hrs Laboratory Tests Test 12/29/18 08:35 White Blood Count 5.8 # Red Blood Count 4.29 L Hemoglobin 13.6 L Hematocrit 40.9 L Mean Corpuscular Volume 95.3 Mean Corpuscular Hemoglobin 31.7 Mean Corpuscular Hemoglobin Concent 33.3 Red Cell Distribution Width 13.4 Platelet Count 141 Mean Platelet Volume 9.6 Immature Granulocytes % 0.300 Neutrophils % 73.9 Lymphocytes % 14.3 L Monocytes % 11.1 H Eosinophils % 0.2 Basophils % 0.2 Nucleated Red Blood Cells % 0.0 Immature Granulocytes # 0.020 Neutrophils # 4.3 Lymphocytes # 0.8 Monocytes # 0.6 Eosinophils # 0.0 Basophils # 0.0 Nucleated Red Blood Cells # 0.0 Sodium Level 140 Potassium Level 4.0 Chloride Level 115 H Carbon Dioxide Level 18 L Anion Gap 7 Blood Urea Nitrogen 11 Creatinine 0.89 Est Glomerular Filtrat Rate mL/min > 60 Glucose Level 103 Calcium Level 7.8 L Magnesium Level 1.9 Medications Medication Current Medications Sodium Chloride 1,000 ml @ 100 mls/hr Q10H IV Last administered on 12/29/18 04:45; Admin Dose 100 MLS/HR; Start 12/27/18 at 15:53 IV Flush (NS 3 ml) 3 ml PER PROTOCOL IV ; Start 12/27/18 at 16:00 Ondansetron HCl (Zofran Inj) 4 mg Q6H PRN IV NAUSEA/VOMITING; Start 12/27/18 at 16:00 Acetaminophen (Tylenol Tab) 650 mg Q6H PRN PO .PAIN 1-3 OR TEMP Last administered on 12/28/18 21:02; Admin Dose 650 MG; Start 12/27/18 at 16:00 Acetaminophen/ Hydrocodone Bitart ([place] (5/325)) 1 tab Q6H PRN PO .MOD PAIN 4- 6 Last administered on 12/28/18 16:04; Admin Dose 1 TAB; Start 12/27/18 at 16:00 Morphine Sulfate (morphine) 2 mg Q4H PRN IV .SEVERE PAIN 7-10; Start 12/27/18 at 16:00 Docusate Sodium (Colace) 100 mg Q12H PRN PO .CONSTIPATION; Start 12/27/18 at 16:00 Zolpidem Tartrate (Ambien) 5 mg QHS PRN PO .INSOMNIA; Start 12/27/18 at 16:00 Ceftriaxone Sodium 50 ml @ 100 mls/hr Q24H IVPB Last administered on 12/28/18at 12:49; Admin Dose 100 MLS/HR; Start 12/28/18 at 12:00 Finasteride (Proscar) 5 mg DAILY PO Last administered on 12/29/18 09:00; Admin Dose 5 MG; Start 12/28/18 at 09:00 Losartan Potassium (Cozaar) 25 mg DAILY PO Last administered on 12/29/18 09:17; Admin Dose 25 MG; Start 12/28/18 at 09:00 Magnesium Oxide (Mag-Ox 400) 400 mg DAILY PO Last administered on 12/29/18 09:08; Admin Dose 400 MG; Start 12/28/18 at 09:00 Multivitamins Therapeutic (Theragran) 1 tab DAILY PO Last administered on 12/29/18 09:00; Admin Dose 1 TAB; Start 12/28/18 at 09:00 Oxcarbazepine (Trileptal) 900 mg BID PO Last administered on 12/29/18 09:01; Admin Dose 900 MG; Start 12/27/18 at 21:00 Topiramate (Topamax) 200 mg BID PO Last administered on 12/29/18 09:08; Admin Dose 200 MG; Start 12/27/18 at 21:00 Cholecalciferol (Vitamin D) 2,000 unit DAILY PO Last administered on 12/29/18 09:08; Admin Dose 2,000 UNIT; Start 12/28/18 at 09:00 Fenofibrate (Tricor) 145 mg DAILY PO Last administered on 12/29/18 09:08; Admin Dose 145 MG; Start 12/28/18 at 09:00 Fish Oil (Fish Oil) 1,000 mg DAILY PO ; Start 12/28/18 at 09:00 Pantoprazole (Protonix Tab) 40 mg BID@0600,1800 PO Last administered on 12/29/18at 04:45; Admin Dose 40 MG; Start 12/28/18 at 06:00 Lorazepam (Ativan) 2 mg Q10M PRN IV seizure; Start 12/27/18 at 22:00 Clonazepam (Klonopin) 0.25 mg Q12 PO Last administered on 12/29/18 09:17; Admin Dose 0.25 MG; Start 12/28/18 at 21:00 STU KENNEDY December 29, 2018 11:17
[2018-12-29] MEDS: LACTOBACILLUS RHAMNOSUS CAP PO SCH ×2 (13:30→21:42)
[2018-12-29] MEDS: CEFTRIAXONE 1 GM/50 ML (PMX) 50 ML IVPB SCH (13:30)
--- NOTE | 2018-12-29 15:53 | CONS ---
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 He was noted on 12/27 to have a generalized convulsion that was self-limited, for which neurology is consulted. It is likely that his current infection is lowering his seizure threshold. P: Await CTH for further characterization Await trileptal level Ok to cont Trileptal and topamax per ops for now, pending the abov Cont klonopin 0.25mg BID in the interim, pending the trileptal level Ativan IV PRN prolonged seizure or for cluster Cont other medical management per primary Will follow clinically Consultation Date/Type/Reason Admit Date/Time December 27, 2018 at 13:57 Type of Consult Neurology Reason for Consultation breakthrough seizures Requesting Provider: STU KENNEDY Date/Time of Note DATE: 12/29/18 TIME: 15:52 24 HR Interval Summary Free Text/Dictation Continues acute care. reportedly refused HCT and then changed her mind. Exam Vital Signs Vitals Vital Signs Date Temp Pulse Resp B/P (MAP) Pulse Ox O2 O2 Flow FiO2 Time Delivery Rate 12/29/18 80 12:36 12/29/18 97.8 18 129/92 98 Room Air 11:36 (104) 12/29/18 2.0 08:00 Intake and Output 12/28/18 12/28/18 12/29/18 1515:00 23:00 07:00 IntakeIntake Total 50 ml 420 ml 120 ml OutputOutput Total 700 ml BalanceBalance 50 ml 420 ml -580 ml Exam PE: Gen Appearance: No Apparent Distress HEENT: Normocephalic Cardiovascular: Regular rate Lungs: Clear bilaterally Abdomen: Soft Extremities: Dry NE: The patient was asleep, though arousable to voice. Grossly oriented. Language was normal. Fund of knowledge was adequate. Pupils were equal and reactive to light. There was no afferent pupillary defect. Visual sahu were normal. Funduscopic examination was limited. Extra-ocular movements were full. Ptosis was absent. There was no nystagmus. Facial sensation was normal. Face was symmetric with normal strength. Hearing was intact. Palate movements were normal. Neck strength was normal. There was normal tongue bulk and speed of movement. Tone was normal. Muscle bulk was normal. I did not see fasciculations. Arms and legs were symmetric. Vibration sensation was normal. Temperature and pinprick sensation was normal. Rapid alternating movements were normal. There was no dysmetria. There was no intention tremor. Gait was deferred due to bedrest. Arm and leg reflexes were 2+ and symmetric. Cornejo's sign was absent. Plantar responses were flexor. NAZ MEDLEY NP December 29, 2018 15:53 CLARE LAMB December 30, 2018 06:35
[2018-12-29] MEDS ORDERED: SOD CHLORIDE 0.9% 1,000 ML IV ONE (16:00)
--- NOTE | 2018-12-29 16:25 | EN ---
Date/Time of Note Date/Time of Note DATE: 12/29/18 TIME: 16:24 Event Note Medicine Medicine Event Note * Sinus tachy vs new afib? Plan: cardio consult echo ekg ACS r/o remain on tele STU KENNEDY December 29, 2018 16:25
[2018-12-29] MEDS ORDERED: MAGNESIUM SULFATE 1 GM/D5W 100 ML IVPB ONE (16:30)
[2018-12-29] MEDS: DOCUSATE SODIUM 100 MG CAP PO SCH (16:52)
[2018-12-29] MEDS: HYDROCODONE/APAP (5/325) TAB PO PRN (17:01)
[2018-12-29] MEDS ORDERED: DILTIAZEM 25 MG INJ IV STA (17:04)
[2018-12-29] MEDS ORDERED: DILTIAZEM 25 MG INJ IV PRN (17:30)
--- NOTE | 2018-12-29 17:50 | CONS ---
Assessment/Plan Assessment/Plan Hospital Course (Demo Recall) SVT Sepsis secondary to UTI Volume overload Brain tumor Seizure disorder Diabetes Hypertension -Patient with sudden onset of tachycardia this afternoon. Review of telemetry with no complex tachycardia to 140s, most consistent with SVT -As per and patient, patient with history of arrhythmia and tachycardia in the past unknown type. He is on beta-darby as an outpatient -We will give 1 dose of IV Cardizem, based on the results we will consider adenosine or other AV koffi blocking agent -Patient also with evidence of volume overload, will check echocardiogram -Continue telemetry monitoring Consultation Date/Type/Reason Admit Date/Time December 27, 2018 at 13:57 Type of Consult Cardiology Reason for Consultation Tachycardia Date/Time of Note DATE: 12/29/18 TIME: 17:46 Hx of Present Illness This is a 68-year-old male was admitted with diagnosis of sepsis secondary to UTI. Patient with recent urologic procedure. Is also a history of diabetes, brain tumor with history of seizure, hypertension, tachycardia as per . Today, patient with sudden onset of tachycardia. Patient does feel palpitations intermittently. He does also feel some shortness of breath. Denies any chest pain, dizziness. 12 point review of systems was performed with all pertinent positives and negatives mentioned above and all else is negative Past Medical History Brain tumor Seizure disorder Arrhythmia Medical History: diabetes, hypertension Home Meds Reported Medications Inulin/Chromium Picolinate (Fiber Gummies) 1 Each Tab.chew, 1 EACH PO DAILY, TAB.CHEW 12/27/18 [Herbal Prostate] No Conflict Check, 2 TAB PO DAILY 12/27/18 Lactobacillus Combo No.10 (Probiotic) 1 Each Capsule, 1 CAP PO DAILY, CAP 12/27/18 [place]-3 Fatty Acids/Fish Oil ([place] 3 1,000 mg Softgel) 1 Each Capsule, 1 EACH PO DAILY, CAP 12/27/18 Multivitamins* (Theragran*) 1 Tab Tab, 1 TAB PO DAILY, TAB 12/27/18 [B Complex 50MG] No Conflict Check, 1 TAB PO DAILY 12/27/18 Cholecalciferol (Vitamin D3) (Vitamin D-3) 2,000 Unit Tablet, 2000 UNIT PO DAILY, TAB 12/27/18 Magnesium Oxide* (Magnesium Oxide*) 400 Mg Tablet, 400 MG PO DAILY, TAB 12/27/18 [Potassium 595MG] No Conflict Check, 1 TAB PO BID 12/27/18 Finasteride* (Finasteride*) 5 Mg Tablet, 5 MG PO DAILY, TAB 12/27/18 Alendronate Sodium* (Fosamax*) 70 Mg Tablet, 70 MG PO Q7D, #4 TAB 12/27/18 Metoprolol Succinate* (Toprol XL*) 50 Mg Tab.er.24h, 50 MG PO DAILY, #30 TAB 12/27/18 Topiramate* (Topamax*) 100 Mg Tablet, 200 MG PO BID, TAB 12/27/18 Oxcarbazepine* (Trileptal*) 300 Mg Tablet, 900 MG PO BID, TAB 12/27/18 Omeprazole* (Omeprazole*) 20 Mg Capsule.dr, 20 MG PO BID, #60 CAP 12/27/18 Fenofibrate, Micronized* (Fenofibrate*) 160 Mg Tablet, 160 MG PO DAILY, TAB 12/27/18 Losartan Potassium* (Losartan Potassium*) 25 Mg Tablet, 25 MG PO DAILY, TAB 12/27/18 Sitagliptin* (Januvia*) 50 Mg Tablet, 50 MG PO DAILY, #30 TAB 12/27/18 Medications Current Medications Sodium Chloride 1,000 ml @ 100 mls/hr Q10H IV Last administered on 12/29/18at 04:45; Admin Dose 100 MLS/HR; Start 12/27/18 at 15:53 IV Flush (NS 3 ml) 3 ml PER PROTOCOL IV ; Start 12/27/18 at 16:00 Ondansetron HCl (Zofran Inj) 4 mg Q6H PRN IV NAUSEA/VOMITING; Start 12/27/18 at 16:00 Acetaminophen (Tylenol Tab) 650 mg Q6H PRN PO .PAIN 1-3 OR TEMP Last administered on 12/28/18at 21:02; Admin Dose 650 MG; Start 12/27/18 at 16:00 Acetaminophen/ Hydrocodone Bitart ([place] (5/325)) 1 tab Q6H PRN PO .MOD PAIN 4- 6 Last administered on 12/29/18at 17:01; Admin Dose 1 TAB; Start 12/27/18 at 16:00 Morphine Sulfate (morphine) 2 mg Q4H PRN IV .SEVERE PAIN 7-10; Start 12/27/18 at 16:00 Zolpidem Tartrate (Ambien) 5 mg QHS PRN PO .INSOMNIA; Start 12/27/18 at 16:00 Ceftriaxone Sodium 50 ml @ 100 mls/hr Q24H IVPB Last administered on 12/29/18 13:30; Admin Dose 100 MLS/HR; Start 12/28/18 at 12:00 Finasteride (Proscar) 5 mg DAILY PO Last administered on 12/29/18 09:00; Admin Dose 5 MG; Start 12/28/18 at 09:00 Losartan Potassium (Cozaar) 25 mg DAILY PO Last administered on 12/29/18 09:17; Admin Dose 25 MG; Start 12/28/18 at 09:00 Magnesium Oxide (Mag-Ox 400) 400 mg DAILY PO Last administered on 12/29/18 09:08; Admin Dose 400 MG; Start 12/28/18 at 09:00 Multivitamins Therapeutic (Theragran) 1 tab DAILY PO Last administered on 12/29/18 09:00; Admin Dose 1 TAB; Start 12/28/18 at 09:00 Oxcarbazepine (Trileptal) 900 mg BID PO Last administered on 12/29/18 09:01; Admin Dose 900 MG; Start 12/27/18 at 21:00 Topiramate (Topamax) 200 mg BID PO Last administered on 12/29/18 09:08; Admin Dose 200 MG; Start 12/27/18 at 21:00 Cholecalciferol (Vitamin D) 2,000 unit DAILY PO Last administered on 12/29/18 09:08; Admin Dose 2,000 UNIT; Start 12/28/18 at 09:00 Fenofibrate (Tricor) 145 mg DAILY PO Last administered on 12/29/18 09:08; Admin Dose 145 MG; Start 12/28/18 at 09:00 Fish Oil (Fish Oil) 1,000 mg DAILY PO ; Start 12/28/18 at 09:00 Lorazepam (Ativan) 2 mg Q10M PRN IV seizure; Start 12/27/18 at 22:00 Docusate Sodium (Colace) 100 mg Q12H PO Last administered on 12/29/18 16:52; Admin Dose 100 MG; Start 12/29/18 at 16:00 Pantoprazole (Protonix Tab) 40 mg DAILY PO ; Start 12/30/18 at 09:00 Heparin Sodium (Porcine) (Heparin (5000 Units/1ml)) 5,000 unit BID SC ; Start 12/29/18 at 21:00 Linagliptin (Tradjenta) 5 mg DAILY PO ; Start 12/30/18 at 09:00 Lactobacillus Acidophilus/ Rhamnosus (Culturelle) 1 cap BID PO Last administered on 12/29/18at 13:30; Admin Dose 1 CAP; Start 12/29/18 at 11:30 Allergies: Coded Allergies: No Known Allergy (Unverified , 12/27/18) Family History Significant Family History: no pertinent family hx Social History Alcohol Use: rarely Smoking Status: Former smoker Drug Use: none Exam/Review of Systems Vital Signs Vitals Vital Signs Date Temp Pulse Resp B/P (MAP) Pulse Ox O2 O2 Flow FiO2 Time Delivery Rate 12/29/18 144 16:09 12/29/18 98.7 18 120/87 98 Room Air 15:54 (98) 12/29/18 2.0 08:00 Intake and Output 12/28/18 12/28/18 12/29/18 1414:59 22:59 06:59 IntakeIntake Total 50 ml 420 ml 120 ml OutputOutput Total 700 ml BalanceBalance 50 ml 420 ml -580 ml Exam Constitutional: alert (No apparent distress, able to give some history but confused at times, at bedside) Respiratory: other (Coarse breath sounds bilaterally, no wheezing) Cardiovascular: regular rate and rhythm (Tachycardia, S1-S2 heard) Gastrointestinal: soft, non-tender, bowel sounds Extremities: edema Labs Result Diagram: 12/29/18 0835 12/29/18 0835 Results 24hrs Laboratory Tests Test 12/29/18 08:35 White Blood Count 5.8 # Red Blood Count 4.29 L Hemoglobin 13.6 L Hematocrit 40.9 L Mean Corpuscular Volume 95.3 Mean Corpuscular Hemoglobin 31.7 Mean Corpuscular Hemoglobin Concent 33.3 Red Cell Distribution Width 13.4 Platelet Count 141 Mean Platelet Volume 9.6 Immature Granulocytes % 0.300 Neutrophils % 73.9 Lymphocytes % 14.3 L Monocytes % 11.1 H Eosinophils % 0.2 Basophils % 0.2 Nucleated Red Blood Cells % 0.0 Immature Granulocytes # 0.020 Neutrophils # 4.3 Lymphocytes # 0.8 Monocytes # 0.6 Eosinophils # 0.0 Basophils # 0.0 Nucleated Red Blood Cells # 0.0 Sodium Level 140 Potassium Level 4.0 Chloride Level 115 H Carbon Dioxide Level 18 L Anion Gap 7 Blood Urea Nitrogen 11 Creatinine 0.89 Est Glomerular Filtrat Rate mL/min > 60 Glucose Level 103 Calcium Level 7.8 L Magnesium Level 1.9 Imaging Imaging Tachycardia in the 140s, likely SVT, QRS 87 ms, no significant ischemic ST abnormalities Medications Medications Current Medications Sodium Chloride 1,000 ml @ 100 mls/hr Q10H IV Last administered on 12/29/18 04:45; Admin Dose 100 MLS/HR; Start 12/27/18 at 15:53 IV Flush (NS 3 ml) 3 ml PER PROTOCOL IV ; Start 12/27/18 at 16:00 Ondansetron HCl (Zofran Inj) 4 mg Q6H PRN IV NAUSEA/VOMITING; Start 12/27/18 at 16:00 Acetaminophen (Tylenol Tab) 650 mg Q6H PRN PO .PAIN 1-3 OR TEMP Last administered on 12/28/18 21:02; Admin Dose 650 MG; Start 12/27/18 at 16:00 Acetaminophen/ Hydrocodone Bitart ([place] (5/325)) 1 tab Q6H PRN PO .MOD PAIN 4- 6 Last administered on 12/29/18 17:01; Admin Dose 1 TAB; Start 12/27/18 at 16:00 Morphine Sulfate (morphine) 2 mg Q4H PRN IV .SEVERE PAIN 7-10; Start 12/27/18 at 16:00 Zolpidem Tartrate (Ambien) 5 mg QHS PRN PO .INSOMNIA; Start 12/27/18 at 16:00 Ceftriaxone Sodium 50 ml @ 100 mls/hr Q24H IVPB Last administered on 12/29/18 13:30; Admin Dose 100 MLS/HR; Start 12/28/18 at 12:00 Finasteride (Proscar) 5 mg DAILY PO Last administered on 12/29/18 09:00; Admin Dose 5 MG; Start 12/28/18 at 09:00 Losartan Potassium (Cozaar) 25 mg DAILY PO Last administered on 12/29/18 09:17; Admin Dose 25 MG; Start 12/28/18 at 09:00 Magnesium Oxide (Mag-Ox 400) 400 mg DAILY PO Last administered on 12/29/18 09:08; Admin Dose 400 MG; Start 12/28/18 at 09:00 Multivitamins Therapeutic (Theragran) 1 tab DAILY PO Last administered on 12/29/18 09:00; Admin Dose 1 TAB; Start 12/28/18 at 09:00 Oxcarbazepine (Trileptal) 900 mg BID PO Last administered on 12/29/18 09:01; Admin Dose 900 MG; Start 12/27/18 at 21:00 Topiramate (Topamax) 200 mg BID PO Last administered on 12/29/18 09:08; Admin Dose 200 MG; Start 12/27/18 at 21:00 Cholecalciferol (Vitamin D) 2,000 unit DAILY PO Last administered on 12/29/18 09:08; Admin Dose 2,000 UNIT; Start 12/28/18 at 09:00 Fenofibrate (Tricor) 145 mg DAILY PO Last administered on 12/29/18 09:08; Admin Dose 145 MG; Start 12/28/18 at 09:00 Fish Oil (Fish Oil) 1,000 mg DAILY PO ; Start 12/28/18 at 09:00 Lorazepam (Ativan) 2 mg Q10M PRN IV seizure; Start 12/27/18 at 22:00 Docusate Sodium (Colace) 100 mg Q12H PO Last administered on 12/29/18 16:52; Admin Dose 100 MG; Start 12/29/18 at 16:00 Pantoprazole (Protonix Tab) 40 mg DAILY PO ; Start 12/30/18 at 09:00 Heparin Sodium (Porcine) (Heparin (5000 Units/1ml)) 5,000 unit BID SC ; Start 12/29/18 at 21:00 Linagliptin (Tradjenta) 5 mg DAILY PO ; Start 12/30/18 at 09:00 Lactobacillus Acidophilus/ Rhamnosus (Culturelle) 1 cap BID PO Last administered on 12/29/18at 13:30; Admin Dose 1 CAP; Start 12/29/18 at 11:30 Taj Holloway DO December 29, 2018 17:50
--- NOTE | 2018-12-29 19:06 | RADRPT ---
Vent Rate: 144 bpm RR Interval: 416 msec [place] Interval: [id number] msec QRS Duration: 87 msec QT Interval: 308 msec QTC Interval: 478 msec P-R-T [place]: [id number] - 43 - 26 degrees SVT Electronically Signed By: Taj Holloway
[2018-12-29] MEDS ORDERED: ADENOSINE 6 MG INJ IV STA (19:24)
[2018-12-29] MEDS ORDERED: ADENOSINE 6 MG INJ IV PRN (19:30)
[2018-12-29] MEDS ORDERED: AMIODARONE 150MG/D5W BOLUS 100 ML IV ONE (21:00)
[2018-12-29] MEDS: METOPROLOL 50 MG TAB PO SCH (21:43)
[2018-12-29] MEDS: AMIODARONE 900 MG in DEXTROSE 5% 482 ML IV SCH (21:59)
[2018-12-29] MEDS: HEPARIN 5,000 UNIT/1 ML VIAL SC SCH (22:26)
[2018-12-30] VITALS (12 sets, daily range): BP systolic 100–113; BP diastolic 55–85; PULSE 77–122; RESP 16–20
[2018-12-30] MEDS: ACETAMINOPHEN 325 MG TAB PO PRN (02:33)
[2018-12-30] MEDS: AMIODARONE 900 MG in DEXTROSE 5% 482 ML IV SCH ×2 (04:04→18:51)
[2018-12-30] MEDS: DOCUSATE SODIUM 100 MG CAP PO SCH ×2 (06:13→16:00)
--- NOTE | 2018-12-30 07:03 | PN ---
Date/Time of Note Date/Time of Note DATE: 12/30/18 TIME: 06:56 Assessment/Plan VTE Prophylaxis Risk score (from Nsg)>0 risk: 2 SCD applied (from Ns): Yes Pharmacological prophylaxis: heparin Lines/Catheters IV Catheter Type (from Nrs): Mid Line Urinary Cath still in place: No Assessment/Plan Hospital Course Subjective: confused speech Objective: General: sleeping, arousable, confused now HEENT: NC/ AT. PERRL. EOM intact Neck: supple CVS: tachy. no murmurs. no pain on chest wall palpation Lungs: CTA b/l. no wheezing or rhonchi Abd: soft, NT +BS Ext: moving all extremities skin: no rashes Assessment and plan: 1. Sepsis secondary to urinary tract infection: -urine cultures growing E. coli, resistant to fluoroquinolones and ampicillin only -new mild temperature bump which could be 2/2 #2 -repeat blood cultures however 2. New onset cardiac arrythmia -cardio following and appreciate input and meds -complete ACS r/o -f/u echo findings -IVF dc 2/2 concern for fluid overload 3. Chronic seizure disorder -reported breakthrough seizures on December 27, 2018 per , no further seizure events or concern for seizure events since then -Patient's refusing CT brain recommended by neurology -continues on home antiepileptics 4. Acute renal insufficiency: Resolved 5. Status post recent TURP 2 months ago for BPH with obstructive symptoms -Patient's procedure was complicated by reduced urinary output and severe pain, he was noted to have a clot and is status post in office irrigation and dilation the day prior to admission -Renal ultrasound was done and is unremarkable without evidence of calculi or obstructive uropathy. 6. Chronic dyslipidemia 7. Hypertension with good control on losartan 8. Severe Lethargy with encephalopathy (acute), likely toxic metabolic -klonopin dced -continue home seizure meds and use benzodiazepines PRN only -f/u brain CT, add MRI brain as well Plan Continue care as above spoke with OP urologist Dr. White, patient was recently dilated in office, monitor PVR, only attempt de león if PVR is >250cc or patient not responding to therapy. otherwise, treat UTI and f/u with him in office o/p. Call anytime with questions [phone] Limit all sedating drugs PT eval Continue seizure precautions Continue all other supportive care and pain control Further interventions per clinical course Needs to remain on tele till cardiac clearance. Result Diagram: 12/29/18 0835 12/29/18 0835 Results 24hrs Laboratory Tests Test 12/29/18 08:35 12/29/18 17:18 White Blood Count 5.8 # Red Blood Count 4.29 L Hemoglobin 13.6 L Hematocrit 40.9 L Mean Corpuscular Volume 95.3 Mean Corpuscular Hemoglobin 31.7 Mean Corpuscular Hemoglobin Concent 33.3 Red Cell Distribution Width 13.4 Platelet Count 141 Mean Platelet Volume 9.6 Immature Granulocytes % 0.300 Neutrophils % 73.9 Lymphocytes % 14.3 L Monocytes % 11.1 H Eosinophils % 0.2 Basophils % 0.2 Nucleated Red Blood Cells % 0.0 Immature Granulocytes # 0.020 Neutrophils # 4.3 Lymphocytes # 0.8 Monocytes # 0.6 Eosinophils # 0.0 Basophils # 0.0 Nucleated Red Blood Cells # 0.0 Sodium Level 140 Potassium Level 4.0 Chloride Level 115 H Carbon Dioxide Level 18 L Anion Gap 7 Blood Urea Nitrogen 11 Creatinine 0.89 Est Glomerular Filtrat Rate mL/min > 60 Glucose Level 103 Calcium Level 7.8 L Magnesium Level 1.9 Creatine Kinase 146 Creatine Kinase Index 1.3 Creatinine Kinase MB (Mass) 1.88 Troponin I 0.059 Exam/Review of Systems Exam Vitals Vital Signs Date Temp Pulse Resp B/P (MAP) Pulse Ox O2 O2 Flow FiO2 Time Delivery Rate 12/30/18 115 04:47 12/30/18 98.2 20 101/76 93 03:53 (84) 12/29/18 Nasal 3.0 20:00 Cannula Intake and Output 12/29/18 12/29/18 12/30/18 1515:00 23:00 07:00 IntakeIntake Total 50 ml 1900 ml 220 ml OutputOutput Total 370 ml 1027 ml BalanceBalance 50 ml 1530 ml -807 ml Results Results 24hrs Laboratory Tests Test 12/29/18 08:35 12/29/18 17:18 White Blood Count 5.8 # Red Blood Count 4.29 L Hemoglobin 13.6 L Hematocrit 40.9 L Mean Corpuscular Volume 95.3 Mean Corpuscular Hemoglobin 31.7 Mean Corpuscular Hemoglobin Concent 33.3 Red Cell Distribution Width 13.4 Platelet Count 141 Mean Platelet Volume 9.6 Immature Granulocytes % 0.300 Neutrophils % 73.9 Lymphocytes % 14.3 L Monocytes % 11.1 H Eosinophils % 0.2 Basophils % 0.2 Nucleated Red Blood Cells % 0.0 Immature Granulocytes # 0.020 Neutrophils # 4.3 Lymphocytes # 0.8 Monocytes # 0.6 Eosinophils # 0.0 Basophils # 0.0 Nucleated Red Blood Cells # 0.0 Sodium Level 140 Potassium Level 4.0 Chloride Level 115 H Carbon Dioxide Level 18 L Anion Gap 7 Blood Urea Nitrogen 11 Creatinine 0.89 Est Glomerular Filtrat Rate mL/min > 60 Glucose Level 103 Calcium Level 7.8 L Magnesium Level 1.9 Creatine Kinase 146 Creatine Kinase Index 1.3 Creatinine Kinase MB (Mass) 1.88 Troponin I 0.059 Medications Medication Current Medications IV Flush (NS 3 ml) 3 ml PER PROTOCOL IV ; Start 12/27/18 at 16:00 Ondansetron HCl (Zofran Inj) 4 mg Q6H PRN IV NAUSEA/VOMITING; Start 12/27/18 at 16:00 Acetaminophen (Tylenol Tab) 650 mg Q6H PRN PO .PAIN 1-3 OR TEMP Last administered on 12/30/18at 02:33; Admin Dose 650 MG; Start 12/27/18 at 16:00 Acetaminophen/ Hydrocodone Bitart ([place] (5/325)) 1 tab Q6H PRN PO .MOD PAIN 4- 6 Last administered on 12/29/18at 17:01; Admin Dose 1 TAB; Start 12/27/18 at 16:00 Morphine Sulfate (morphine) 2 mg Q4H PRN IV .SEVERE PAIN 7-10; Start 12/27/18 at 16:00 Zolpidem Tartrate (Ambien) 5 mg QHS PRN PO .INSOMNIA; Start 12/27/18 at 16:00 Ceftriaxone Sodium 50 ml @ 100 mls/hr Q24H IVPB Last administered on 12/29/18at 13:30; Admin Dose 100 MLS/HR; Start 12/28/18 at 12:00 Finasteride (Proscar) 5 mg DAILY PO Last administered on 12/29/18at 09:00; Admin Dose 5 MG; Start 12/28/18 at 09:00 Losartan Potassium (Cozaar) 25 mg DAILY PO Last administered on 12/29/18 09:17; Admin Dose 25 MG; Start 12/28/18 at 09:00 Magnesium Oxide (Mag-Ox 400) 400 mg DAILY PO Last administered on 12/29/18 09:08; Admin Dose 400 MG; Start 12/28/18 at 09:00 Multivitamins Therapeutic (Theragran) 1 tab DAILY PO Last administered on 12/29/18 09:00; Admin Dose 1 TAB; Start 12/28/18 at 09:00 Oxcarbazepine (Trileptal) 900 mg BID PO Last administered on 12/29/18 21:42; Admin Dose 900 MG; Start 12/27/18 at 21:00 Topiramate (Topamax) 200 mg BID PO Last administered on 12/29/18 21:43; Admin Dose 200 MG; Start 12/27/18 at 21:00 Cholecalciferol (Vitamin D) 2,000 unit DAILY PO Last administered on 12/29/18 09:08; Admin Dose 2,000 UNIT; Start 12/28/18 at 09:00 Fenofibrate (Tricor) 145 mg DAILY PO Last administered on 12/29/18 09:08; Admin Dose 145 MG; Start 12/28/18 at 09:00 Fish Oil (Fish Oil) 1,000 mg DAILY PO ; Start 12/28/18 at 09:00 Lorazepam (Ativan) 2 mg Q10M PRN IV seizure; Start 12/27/18 at 22:00 Docusate Sodium (Colace) 100 mg Q12H PO Last administered on 12/30/18 06:13; Admin Dose 100 MG; Start 12/29/18 at 16:00 Pantoprazole (Protonix Tab) 40 mg DAILY PO ; Start 12/30/18 at 09:00 Heparin Sodium (Porcine) (Heparin (5000 Units/1ml)) 5,000 unit BID SC Last administered on 12/29/18 22:26; Admin Dose 5,000 UNIT; Start 12/29/18 at 21:00 Linagliptin (Tradjenta) 5 mg DAILY PO ; Start 12/30/18 at 09:00 Lactobacillus Acidophilus/ Rhamnosus (Culturelle) 1 cap BID PO Last administered on 12/29/18 21:42; Admin Dose 1 CAP; Start 12/29/18 at 11:30 Metoprolol Tartrate (Lopressor) 50 mg BID PO Last administered on 12/29/18at 21:43; Admin Dose 50 MG; Start 12/29/18 at 21:00 Diltiazem HCl (Cardizem Iv) 15 mg Q1H PRN IV sustained HR>140; Start 12/29/18 at 17:30 Adenosine (Adenosine) 12 mg ONCE PRN IV sustained hr>130 Last administered on 12/29/18at 20:34; Admin Dose 12 MG; Start 12/29/18 at 19:30; Stop 12/30/18 at 07:00 Amiodarone HCl 900 mg/Dextrose 500 ml @ 0 mls/hr Q0M IV Last administered on 12/30/18at 04:04; Admin Dose 16.7 MLS/HR; Start 12/29/18 at 21:00 STU KENNEDY December 30, 2018 07:02
[2018-12-30] MEDS: FINASTERIDE 5 MG TAB PO SCH (08:57)
[2018-12-30] MEDS: CHOLECALCIFEROL 2,000 UNIT CAP PO SCH (08:59)
[2018-12-30] MEDS: MULTIVITAMINS THERAPEUTIC TAB PO SCH (08:59)
[2018-12-30] MEDS: LINAGLIPTIN 5 MG TABLET PO SCH (08:59)
[2018-12-30] MEDS: PANTOPRAZOLE (EC) 40 MG TAB PO SCH (08:59)
[2018-12-30] MEDS: MAGNESIUM OXIDE 400 MG TAB PO SCH (08:59)
[2018-12-30] MEDS: TOPIRAMATE 100 MG TAB PO SCH ×2 (08:59→22:30)
[2018-12-30] MEDS: FENOFIBRATE 145 MG TAB PO SCH (08:59)
[2018-12-30] MEDS: METOPROLOL 50 MG TAB PO SCH ×2 (09:00→22:31)
[2018-12-30] MEDS: LACTOBACILLUS RHAMNOSUS CAP PO SCH ×2 (09:00→22:31)
[2018-12-30] MEDS: OXCARBAZEPINE 300 MG TAB PO SCH ×2 (09:00→22:30)
[2018-12-30] MEDS: FISH OIL 1,000 MG CAP PO SCH (09:00)
[2018-12-30] MEDS: LOSARTAN 25 MG TAB PO SCH (09:01)
[2018-12-30] MEDS: HEPARIN 5,000 UNIT/1 ML VIAL SC SCH ×2 (09:09→22:43)
--- NOTE | 2018-12-30 11:11 | RADRPT ---
Vent Rate: 106 bpm RR Interval: 564 msec HI Interval: [id number] msec QRS Duration: 91 msec QT Interval: 368 msec QTC Interval: 490 msec P-R-T [place]: [phone] - 67 - 58 degrees Junctional tachycardia...absent P waves, rapid V-rate Electronically Signed By: Taj Holloway
--- NOTE | 2018-12-30 11:16 | RADRPT ---
Echocardiogram Report Patient Name: NAREN JOHNSONPatient ID: [id number] : 1950 (69y )Study Date: 12/30/2018 7:58:30 AM Gender: MAccession #: [id number] Tech: Lacey Pan CORRIE Location: [id number] Ref.Physician: STU KENNEDY Height(Cm): BSA: Weight(Kg): Quality: AdequateAccount #: Procedures: Echocardiographic Report: Transthoracic echocardiogram with complete 2D, M-Mode, and doppler examination. Indications: Sepsis, high BNP. Measurements: 2D/M Mode Doppler Measurement Value Normal Range Measurement Value Normal Range LVIDd 2D 3.8 [ 4.2 - 5.8 ] cm AV Peak Evangelista 1.0 [ 100.0 - 170.0 ] cm/sec LVIDs 2D 2.6 [ 2.5 - 4.0 ] cm AV Peak PG 4.0 [ 2.0 - 9.0 ] mmHg LVPWd 2D 1.1 [ 0.6 - 1.0 ] cm AI Peak PG 26.0 mmHg IVSd 2D 1.1 [ 0.6 - 1.0 ] cm AI Peak Evangelista 2.5 cm/sec AoR Diam 2D 2.9 [ 2.6 - 3.4 ] cm AI PHT 482.0 msec EDV 2D 61.2 [ 62.0 - 150.0 ] ml LVOT Peak Evangelista 0.8 [ 70.0 - 110.0 ] cm/sec ESV 2D 23.9 [ 21.0 - 61.0 ] ml LVOT Peak PG 3.0 [ 2.0 - 6.0 ] mmHg EF 2D 60.9 [ 52.0 - 72.0 ] percent TR Peak Evangelista 2.2 [ 100.0 - 280.0 ] cm/sec LA Dimen 2D 3.8 [ 3.0 - 4.0 ] cm TR Peak PG 19.0 mmHg RVSP 22.0 [ 10.0 - 36.0 ] mmHg RA Pressure 3.0 mmHg Findings: Left Ventricle: Normal left ventricular systolic function. Normal left ventricular cavity size. Mild concentric left ventricular hypertrophy. Ejection fraction is visually estimated at 55 %. Abnormal Diastolic Function. Right Ventricle: Normal right ventricular size. Normal right ventricular systolic function. Left Atrium: The left atrium is normal in size. Right Atrium: The right atrium is normal in size. Mitral Valve: Mitral valve leaflets appear mildly thickened. Mild mitral annular calcification. Mild to moderate mitral valve regurgitation. Aortic Valve: No hemodynamically significant aortic stenosis by doppler. Aortic cusps appear mildly calcified. Mild aortic valve regurgitation. Tricuspid Valve: Normal appearance of the tricuspid valve. Estimated peak PA systolic pressure 22 mmHg. There is trace tricuspid regurgitation. Pulmonic Valve: Pulmonic valve not well visualized. Pericardium: Normal pericardium with no significant pericardial effusion. Aorta: Normal aortic root. IVC: Normal size and normal respiratory collapse consistent with normal right atrial pressure. Conclusions: Normal left ventricular systolic function. Normal left ventricular cavity size. Mild concentric left ventricular hypertrophy. Ejection fraction is visually estimated at 55 %. Abnormal Diastolic Function. Normal right ventricular size. Normal right ventricular systolic function. The left atrium is normal in size. The right atrium is normal in size. Mild to moderate mitral valve regurgitation. No hemodynamically significant aortic stenosis by doppler. Mild aortic valve regurgitation. Estimated peak PA systolic pressure 22 mmHg. There is trace tricuspid regurgitation. Normal pericardium with no significant pericardial effusion. Electronically Signed By: Taj Holloway 2018-12-30 11:15:17 PDT
[2018-12-30] MEDS ORDERED: FUROSEMIDE 20 MG INJ IV ONE (11:30)
--- NOTE | 2018-12-30 12:12 | CONS ---
Assessment/Plan Assessment/Plan Hospital Course (Demo Recall) SVT/paroxysmal atrial fibrillation Preserved left ventricular ejection fraction Mild to moderate mitral valve regurgitation Sepsis secondary to UTI Volume overload Brain tumor Seizure disorder Diabetes Hypertension -Initially attempted adenosine yesterday, patient with bradycardia down to the 30s but then recurrent SVT, this was after 6 mg then later 12 mg of IV adenosine. We next started IV amiodarone overnight. -Clinically reviewed with what appeared as accelerated junctional rhythm and then patient converted to sinus rhythm this morning. Patient having episodes of paroxysmal H fibrillation on telemetry. -We will continue IV amiodarone and adjust to p.o. starting from tomorrow -Continue beta-darby -Given blood pressure on the lower side, I would hold antihypertensive -Low-dose diuretic as blood pressure tolerates -Maintain potassium above 4.0 and magnesium above 2.0 -Patient with known history of brain tumor with epilepsy, I would defer anticoagulation until okay by neurology to initiate -Plan of care and findings discussed with patient and at bedside Consultation Date/Type/Reason Admit Date/Time December 27, 2018 at 13:57 Initial Consult Date Type of Consult Cardiology Requesting Provider: STU KENNEDY Date/Time of Note DATE: 12/30/18 TIME: 12:08 24 HR Interval Summary Free Text/Dictation Feeling better today. Denies shortness of breath, palpitations. Exam/Review of Systems Vital Signs Vitals Vital Signs Date Temp Pulse Resp B/P (MAP) Pulse Ox O2 O2 Flow FiO2 Time Delivery Rate 12/30/18 98.0 77 16 100/64 99 Room Air 11:24 (76) 12/30/18 2.0 08:00 Intake and Output 12/29/18 12/29/18 12/30/18 1414:59 22:59 06:59 IntakeIntake Total 50 ml 1900 ml 220 ml OutputOutput Total 285 ml 1112 ml BalanceBalance 50 ml 1615 ml -892 ml Exam Constitutional: alert (Following commands, no apparent distress) Head: normocephalic Respiratory: other (Coarse breath sounds bilaterally, no wheezing) Cardiovascular: regular rate and rhythm (S1-S2 heard) Gastrointestinal: soft, non-tender, bowel sounds Extremities: edema Labs Result Diagram: 12/30/18 0717 12/30/18 0717 Results 24hrs Laboratory Tests Test 12/29/18 17:18 12/30/18 07:17 12/30/18 08:58 Creatine Kinase 146 130 Creatine Kinase Index 1.3 1.3 Creatinine Kinase MB (Mass) 1.88 1.64 Troponin I 0.059 0.043 White Blood Count 8.4 # Red Blood Count 4.40 L Hemoglobin 13.8 L Hematocrit 41.5 L Mean Corpuscular Volume 94.3 Mean Corpuscular Hemoglobin 31.4 Mean Corpuscular Hemoglobin Concent 33.3 Red Cell Distribution Width 13.4 Platelet Count 141 Mean Platelet Volume 10.2 Immature Granulocytes % 0.500 H Neutrophils % 58.8 Lymphocytes % 21.9 Monocytes % 17.1 H Eosinophils % 1.2 Basophils % 0.5 Nucleated Red Blood Cells % 0.0 Immature Granulocytes # 0.040 H Neutrophils # 4.9 Lymphocytes # 1.8 Monocytes # 1.4 H Eosinophils # 0.1 Basophils # 0.0 Nucleated Red Blood Cells # 0.0 Sodium Level 143 Potassium Level 4.2 Chloride Level 114 H Carbon Dioxide Level 21 Anion Gap 8 Blood Urea Nitrogen 10 Creatinine 0.88 Est Glomerular Filtrat Rate mL/min > 60 Glucose Level 115 Calcium Level 8.4 Magnesium Level 2.4 Bedside Glucose 107 Medications Medications Current Medications IV Flush (NS 3 ml) 3 ml PER PROTOCOL IV ; Start 12/27/18 at 16:00 Ondansetron HCl (Zofran Inj) 4 mg Q6H PRN IV NAUSEA/VOMITING; Start 12/27/18 at 16:00 Acetaminophen (Tylenol Tab) 650 mg Q6H PRN PO .PAIN 1-3 OR TEMP Last administered on 12/30/18at 02:33; Admin Dose 650 MG; Start 12/27/18 at 16:00 Acetaminophen/ Hydrocodone Bitart ([place] (5/325)) 1 tab Q6H PRN PO .MOD PAIN 4- 6 Last administered on 12/29/18at 17:01; Admin Dose 1 TAB; Start 12/27/18 at 16:00 Morphine Sulfate (morphine) 2 mg Q4H PRN IV .SEVERE PAIN 7-10; Start 12/27/18 at 16:00 Zolpidem Tartrate (Ambien) 5 mg QHS PRN PO .INSOMNIA; Start 12/27/18 at 16:00 Ceftriaxone Sodium 50 ml @ 100 mls/hr Q24H IVPB Last administered on 12/29/18 13:30; Admin Dose 100 MLS/HR; Start 12/28/18 at 12:00 Finasteride (Proscar) 5 mg DAILY PO Last administered on 12/30/18 08:57; Admin Dose 5 MG; Start 12/28/18 at 09:00 Magnesium Oxide (Mag-Ox 400) 400 mg DAILY PO Last administered on 12/30/18 08:59; Admin Dose 400 MG; Start 12/28/18 at 09:00 Multivitamins Therapeutic (Theragran) 1 tab DAILY PO Last administered on 12/30/18 08:59; Admin Dose 1 TAB; Start 12/28/18 at 09:00 Oxcarbazepine (Trileptal) 900 mg BID PO Last administered on 12/30/18 09:00; Admin Dose 900 MG; Start 12/27/18 at 21:00 Topiramate (Topamax) 200 mg BID PO Last administered on 12/30/18 08:59; Admin Dose 200 MG; Start 12/27/18 at 21:00 Cholecalciferol (Vitamin D) 2,000 unit DAILY PO Last administered on 12/30/18 08:59; Admin Dose 2,000 UNIT; Start 12/28/18 at 09:00 Fenofibrate (Tricor) 145 mg DAILY PO Last administered on 12/30/18 08:59; Admin Dose 145 MG; Start 12/28/18 at 09:00 Fish Oil (Fish Oil) 1,000 mg DAILY PO Last administered on 12/30/18 09:00; Admin Dose 1,000 MG; Start 12/28/18 at 09:00 Lorazepam (Ativan) 2 mg Q10M PRN IV seizure; Start 12/27/18 at 22:00 Docusate Sodium (Colace) 100 mg Q12H PO Last administered on 12/30/18 06:13; Admin Dose 100 MG; Start 12/29/18 at 16:00 Pantoprazole (Protonix Tab) 40 mg DAILY PO Last administered on 12/30/18 08:59; Admin Dose 40 MG; Start 12/30/18 at 09:00 Heparin Sodium (Porcine) (Heparin (5000 Units/1ml)) 5,000 unit BID SC Last administered on 12/30/18 09:09; Admin Dose 5,000 UNIT; Start 12/29/18 at 21:00 Linagliptin (Tradjenta) 5 mg DAILY PO Last administered on 12/30/18at 08:59; Adm in Dose 5 MG; Start 12/30/18 at 09:00 Lactobacillus Acidophilus/ Rhamnosus (Culturelle) 1 cap BID PO Last administered on 12/30/18at 09:00; Admin Dose 1 CAP; Start 12/29/18 at 11:30 Metoprolol Tartrate (Lopressor) 50 mg BID PO Last administered on 12/29/18at 21:43; Admin Dose 50 MG; Start 12/29/18 at 21:00 Diltiazem HCl (Cardizem Iv) 15 mg Q1H PRN IV sustained HR>140; Start 12/29/18 at 17:30 Amiodarone HCl 900 mg/Dextrose 500 ml @ 0 mls/hr Q0M IV Last administered on 12/30/18at 04:04; Admin Dose 16.7 MLS/HR; Start 12/29/18 at 21:00 Taj Holloway DO December 30, 2018 12:12
[2018-12-30] MEDS: CEFTRIAXONE 1 GM/50 ML (PMX) 50 ML IVPB SCH (12:20)
[2018-12-30] MEDS ORDERED: FUROSEMIDE 20 MG TAB PO ONE (15:00)
--- NOTE | 2018-12-30 17:00 | CONS ---
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 He was noted on 12/27 to have a generalized convulsion that was self-limited, for which neurology is consulted. It is likely that his current infection is lowering his seizure threshold. P: Await CTH for further characterization Await trileptal level Ok to cont Trileptal and topamax per ops for now, pending the abov Cont klonopin 0.25mg BID in the interim, pending the trileptal level Ativan IV PRN prolonged seizure or for cluster Cont other medical management per primary Will follow clinically Consultation Date/Type/Reason Admit Date/Time December 27, 2018 at 13:57 Type of Consult Neurology Reason for Consultation breakthrough seizures Requesting Provider: STU KENNEDY Date/Time of Note DATE: 12/30/18 TIME: 17:00 24 HR Interval Summary Free Text/Dictation Continues acute care. Exam Vital Signs Vitals Vital Signs Date Temp Pulse Resp B/P (MAP) Pulse Ox O2 O2 Flow FiO2 Time Delivery Rate 12/30/18 110 16:45 12/30/18 98.0 18 109/59 99 Nasal 15:03 (76) Cannula 12/30/18 2.0 08:00 Intake and Output 12/29/18 12/29/18 12/30/18 1515:00 23:00 07:00 IntakeIntake Total 50 ml 1900 ml 220 ml OutputOutput Total 370 ml 1027 ml BalanceBalance 50 ml 1530 ml -807 ml Exam PE: Gen Appearance: No Apparent Distress HEENT: Normocephalic Cardiovascular: Regular rate Lungs: Clear bilaterally Abdomen: Soft Extremities: Dry NE: The patient was awake and alert. Grossly oriented. Language was normal. Fund of knowledge was adequate. Pupils were equal and reactive to light. There was no afferent pupillary defect. Visual sahu were normal. Funduscopic examination was limited. Extra-ocular movements were full. Ptosis was absent. There was no nystagmus. Facial sensation was normal. Face was symmetric with normal strength. Hearing was intact. Palate movements were normal. Neck strength was normal. There was normal tongue bulk and speed of movement. Tone was normal. Muscle bulk was normal. I did not see fasciculations. Arms and legs were symmetric. Vibration sensation was normal. Temperature and pinprick sensation was normal. Rapid alternating movements were normal. There was no dysmetria. There was no intention tremor. Gait was deferred due to bedrest. Arm and leg reflexes were 2+ and symmetric. Cornejo's sign was absent. Plantar responses were flexor. NAZ MEDLEY NP December 30, 2018 17:00
[2018-12-31] VITALS (11 sets, daily range): BP systolic 94–112; BP diastolic 62–80; PULSE 61–85; RESP 18–20
[2018-12-31] MEDS: DOCUSATE SODIUM 100 MG CAP PO SCH ×2 (04:00→16:35)
[2018-12-31] MEDS: OXCARBAZEPINE 300 MG TAB PO SCH ×2 (08:57→22:14)
[2018-12-31] MEDS: FINASTERIDE 5 MG TAB PO SCH (08:57)
[2018-12-31] MEDS: MULTIVITAMINS THERAPEUTIC TAB PO SCH (08:57)
[2018-12-31] MEDS: FENOFIBRATE 145 MG TAB PO SCH (08:58)
[2018-12-31] MEDS: AMIODARONE 200 MG TAB PO SCH ×2 (08:58→22:13)
[2018-12-31] MEDS: PANTOPRAZOLE (EC) 40 MG TAB PO SCH (08:58)
[2018-12-31] MEDS: FISH OIL 1,000 MG CAP PO SCH (08:59)
[2018-12-31] MEDS: LACTOBACILLUS RHAMNOSUS CAP PO SCH ×2 (08:59→22:14)
[2018-12-31] MEDS: CHOLECALCIFEROL 2,000 UNIT CAP PO SCH (08:59)
[2018-12-31] MEDS: METOPROLOL 50 MG TAB PO SCH ×2 (08:59→22:14)
[2018-12-31] MEDS: TOPIRAMATE 100 MG TAB PO SCH ×2 (08:59→22:14)
[2018-12-31] MEDS: HEPARIN 5,000 UNIT/1 ML VIAL SC SCH ×2 (09:00→22:22)
[2018-12-31] MEDS: LINAGLIPTIN 5 MG TABLET PO SCH (09:00)
--- NOTE | 2018-12-31 10:31 | CONS ---
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 He was noted on 12/27 to have a generalized convulsion that was self-limited, for which neurology is consulted. It is likely that his current infection is lowering his seizure threshold. HCT is most notable for a small R frontal lobe hypodensity, of undetermined significance. P: Await MRI brain for further characterization Clarify brain neoplasm hx when able Await trileptal level Ok to cont Trileptal and topamax per ops for now, pending the above Recommend klonopin 0.25mg BID in the interim, pending the trileptal level Ativan IV PRN prolonged seizure or for cluster Cont other medical management per primary Will follow clinically Consultation Date/Type/Reason Admit Date/Time December 27, 2018 at 13:57 Type of Consult Neurology Reason for Consultation breakthrough seizures Requesting Provider: STU KENNEDY Date/Time of Note DATE: 12/31/18 TIME: 10:31 24 HR Interval Summary Free Text/Dictation Continues acute care. S/p HCT. Exam Vital Signs Vitals Vital Signs Date Temp Pulse Resp B/P (MAP) Pulse Ox O2 O2 Flow FiO2 Time Delivery Rate 12/31/18 61 08:59 12/31/18 98.0 18 112/69 97 Room Air 07:29 (83) 12/30/18 2.0 20:00 Intake and Output 12/30/18 12/30/18 12/31/18 1515:00 23:00 07:00 IntakeIntake Total 920 ml 320 ml OutputOutput Total 780 ml 800 ml BalanceBalance 140 ml -480 ml Exam PE: Gen Appearance: No Apparent Distress HEENT: Normocephalic Cardiovascular: Regular rate Lungs: Clear bilaterally Abdomen: Soft Extremities: Dry NE: The patient was awake and alert. Grossly oriented. Language was normal. Fund of knowledge was adequate. Pupils were equal and reactive to light. There was no afferent pupillary defect. Visual sahu were normal. Funduscopic examination was limited. Extra-ocular movements were full. Ptosis was absent. There was no nystagmus. Facial sensation was normal. Face was symmetric with normal strength. Hearing was intact. Palate movements were normal. Neck strength was normal. There was normal tongue bulk and speed of movement. Tone was normal. Muscle bulk was normal. I did not see fasciculations. Arms and legs were symmetric. Vibration sensation was normal. Temperature and pinprick sensation was normal. Rapid alternating movements were normal. There was no dysmetria. There was no intention tremor. Gait was deferred due to bedrest. Arm and leg reflexes were 2+ and symmetric. Cornejo's sign was absent. Plantar responses were flexor. NAZ MEDLEY NP December 31, 2018 10:31
[2018-12-31] MEDS ORDERED: ASPIRIN 81 MG TAB PO SCH (11:00)
[2018-12-31] MEDS: CEFTRIAXONE 1 GM/50 ML (PMX) 50 ML IVPB SCH (11:14)
--- NOTE | 2018-12-31 11:29 | PN ---
Date/Time of Note Date/Time of Note DATE: 12/31/18 TIME: :22 Assessment/Plan VTE Prophylaxis Risk score (from Ns)>0 risk: 3 SCD applied (from Ns): No SCD contraindicated: other Pharmacological prophylaxis: heparin Lines/Catheters IV Catheter Type (from [facility]): Mid Line Urinary Cath still in place: No Assessment/Plan Hospital Course Subjective: Patient had MRI performed this morning after some coaxing was done by the to get this performed. Seen by neurology team today. Heart rate improved since early this morning, now on p.o. amiodarone only. Objective: General: sleeping, arousable, confused now HEENT: NC/ AT. PERRL. EOM intact Neck: supple CVS: tachy. no murmurs. no pain on chest wall palpation Lungs: CTA b/l. no wheezing or rhonchi Abd: soft, NT +BS Ext: moving all extremities skin: no rashes Assessment and plan: 68M who presents with: 1. Sepsis secondary to urinary tract infection: -urine cultures growing E. coli, resistant to fluoroquinolones and ampicillin only -Based on sensitivities continue Rocephin, monitor CBC daily Tylenol. Beta fevers 2. New onset cardiac arrythmia -SVT yesterday, was on amiodarone drip IV overnight after not responding to adenosine pushes, but again this morning patient has normal heart rate -cardio following and appreciate input -continue p.o. amiodarone for now -f/u echo findings, for now needs to remain on tele till cardiac clearance. 3. Chronic seizure disorder -reported breakthrough seizures on December 27, 2018 per , no further seizure events or concern for seizure events since then -Appreciate neurology recommendations, continue Topamax and Trileptal for now -Monitor for signs of seizures, follow-up results of MRI of the brain which was performed this morning. -Continue seizure precautions 4. Acute renal insufficiency: Resolved - monitor 5. Status post recent TURP- 2 months ago for BPH with obstructive symptoms -Patient's procedure was complicated by reduced urinary output and severe pain, he was noted to have a clot and is status post in office irrigation and dilation the day prior to admission-Renal ultrasound was done and is unremarkable without evidence of calculi or obstructive uropathy. -Monitor for now -Previous hospitalist spoke with OP urologist Dr. White recently, patient was recently dilated in office, monitor PVR, only attempt de león if PVR is >250cc or patient not responding to therapy. otherwise, treat UTI and f/u with him in office o/p. Call anytime with questions [phone] 6. Chronic dyslipidemia 7. Hypertension with good control on losartan -Continue current medication 8. Severe Lethargy with encephalopathy (acute), likely toxic metabolic - klonopin dced -continue home seizure meds and use benzodiazepines PRN only -f/u MRI brain as well, Limit all sedating drugs -Continue PT Result Diagram: 12/31/1853512/31/18535 Results 24hrs Laboratory Tests Test 12/31/18 05:36 White Blood Count 11.0 #H Red Blood Count 4.27 L Hemoglobin 13.4 L Hematocrit 40.2 L Mean Corpuscular Volume 94.1 Mean Corpuscular Hemoglobin 31.4 Mean Corpuscular Hemoglobin Concent 33.3 Red Cell Distribution Width 13.4 Platelet Count 149 Mean Platelet Volume 10.4 Immature Granulocytes % 0.500 H Neutrophils % 66.9 Lymphocytes % 18.6 Monocytes % 12.4 H Eosinophils % 1.3 Basophils % 0.3 Nucleated Red Blood Cells % 0.0 Immature Granulocytes # 0.060 H Neutrophils # 7.4 Lymphocytes # 2.1 Monocytes # 1.4 H Eosinophils # 0.1 Basophils # 0.0 Nucleated Red Blood Cells # 0.0 Sodium Level 143 Potassium Level 4.2 Chloride Level 115 H Carbon Dioxide Level 22 Anion Gap 6 Blood Urea Nitrogen 11 Creatinine 1.00 Est Glomerular Filtrat Rate mL/min > 60 Glucose Level 104 Calcium Level 8.2 L Exam/Review of Systems Exam Vitals Vital Signs Date Temp Pulse Resp B/P (MAP) Pulse Ox O2 O2 Flow FiO2 Time Delivery Rate 12/31/18 61 08:59 12/31/18 98.0 18 112/69 97 Room Air 07:29 (83) 12/30/18 2.0 20:00 Intake and Output 12/30/18 12/30/18 12/31/18 1515:00 23:00 07:00 IntakeIntake Total 920 ml 320 ml OutputOutput Total 780 ml 800 ml BalanceBalance 140 ml -480 ml Results Results 24hrs Laboratory Tests Test 12/31/18 05:36 White Blood Count 11.0 #H Red Blood Count 4.27 L Hemoglobin 13.4 L Hematocrit 40.2 L Mean Corpuscular Volume 94.1 Mean Corpuscular Hemoglobin 31.4 Mean Corpuscular Hemoglobin Concent 33.3 Red Cell Distribution Width 13.4 Platelet Count 149 Mean Platelet Volume 10.4 Immature Granulocytes % 0.500 H Neutrophils % 66.9 Lymphocytes % 18.6 Monocytes % 12.4 H Eosinophils % 1.3 Basophils % 0.3 Nucleated Red Blood Cells % 0.0 Immature Granulocytes # 0.060 H Neutrophils # 7.4 Lymphocytes # 2.1 Monocytes # 1.4 H Eosinophils # 0.1 Basophils # 0.0 Nucleated Red Blood Cells # 0.0 Sodium Level 143 Potassium Level 4.2 Chloride Level 115 H Carbon Dioxide Level 22 Anion Gap 6 Blood Urea Nitrogen 11 Creatinine 1.00 Est Glomerular Filtrat Rate mL/min > 60 Glucose Level 104 Calcium Level 8.2 L Medications Medication Current Medications IV Flush (NS 3 ml) 3 ml PER PROTOCOL IV ; Start 12/27/18 at 16:00 Ondansetron HCl (Zofran Inj) 4 mg Q6H PRN IV NAUSEA/VOMITING; Start 12/27/18 at 16:00 Acetaminophen (Tylenol Tab) 650 mg Q6H PRN PO .PAIN 1-3 OR TEMP Last a dministered on 12/30/18at 02:33; Admin Dose 650 MG; Start 12/27/18 at 16:00 Morphine Sulfate (morphine) 2 mg Q4H PRN IV .SEVERE PAIN 7-10; Start 12/27/18 at 16:00 Zolpidem Tartrate (Ambien) 5 mg QHS PRN PO .INSOMNIA; Start 12/27/18 at 16:00 Ceftriaxone Sodium 50 ml @ 100 mls/hr Q24H IVPB Last administered on 12/31/18at 11:14; Admin Dose 100 MLS/HR; Start 12/28/18 at 12:00 Finasteride (Proscar) 5 mg DAILY PO Last administered on 12/31/18at 08:57; Admin Dose 5 MG; Start 12/28/18 at 09:00 Multivitamins Therapeutic (Theragran) 1 tab DAILY PO Last administered on 12/31/18at 08:57; Admin Dose 1 TAB; Start 12/28/18 at 09:00 Oxcarbazepine (Trileptal) 900 mg BID PO Last administered on 12/31/18 08:57; Admin Dose 900 MG; Start 12/27/18 at 21:00 Topiramate (Topamax) 200 mg BID PO Last administered on 12/31/18 08:59; Admin Dose 200 MG; Start 12/27/18 at 21:00 Cholecalciferol (Vitamin D) 2,000 unit DAILY PO Last administered on 12/31/18 08:59; Admin Dose 2,000 UNIT; Start 12/28/18 at 09:00 Fenofibrate (Tricor) 145 mg DAILY PO Last administered on 12/31/18 08:58; Admin Dose 145 MG; Start 12/28/18 at 09:00 Fish Oil (Fish Oil) 1,000 mg DAILY PO Last administered on 12/31/18 08:59; Admin Dose 1,000 MG; Start 12/28/18 at 09:00 Lorazepam (Ativan) 2 mg Q10M PRN IV seizure; Start 12/27/18 at 22:00 Docusate Sodium (Colace) 100 mg Q12H PO Last administered on 12/31/18 04:00; Admin Dose 100 MG; Start 12/29/18 at 16:00 Pantoprazole (Protonix Tab) 40 mg DAILY PO Last administered on 12/31/18 08:58 ; Admin Dose 40 MG; Start 12/30/18 at 09:00 Heparin Sodium (Porcine) (Heparin (5000 Units/1ml)) 5,000 unit BID SC Last administered on 12/30/18 22:43; Admin Dose 5,000 UNIT; Start 12/29/18 at 21:00 Linagliptin (Tradjenta) 5 mg DAILY PO Last administered on 12/30/18 08:59; Admin Dose 5 MG; Start 12/30/18 at 09:00 Lactobacillus Acidophilus/ Rhamnosus (Culturelle) 1 cap BID PO Last administered on 12/31/18 08:59; Admin Dose 1 CAP; Start 12/29/18 at 11:30 Metoprolol Tartrate (Lopressor) 50 mg BID PO Last administered on 12/31/18 08:59; Admin Dose 50 MG; Start 12/29/18 at 21:00 Diltiazem HCl (Cardizem Iv) 15 mg Q1H PRN IV sustained HR>140; Start 12/29/18 at 17:30 Amiodarone HCl (Cordarone) 200 mg BID PO Last administered on 12/31/18at 08:58; Admin Dose 200 MG; Start 12/31/18 at 09:00 Aspirin (Aspirin) 81 mg DAILY PO Last administered on 12/31/18at 11:14; Admin Dose 81 MG; Start 12/31/18 at 11:00 Atorvastatin Calcium (Lipitor) 40 mg HS PO ; Start 12/31/18 at 21:00 JOVON CALDWELL December 31, 2018 11:29
--- NOTE | 2018-12-31 12:24 | CONS ---
Consult Date/Type/Reason Admit Date/Time December 27, 2018 at 13:57 Initial Consult Date Requesting Provider: STU KENNEDY Date/Time of Note DATE: 12/31/18 TIME: 12:22 Subjective Cardiology follow-up progress note Subjective: Discussed with the staff telemetry was reviewed discussed with the patient family including his and his sister Patient has had recurrent SVTs. She is back in sinus rhythm now. No chest pain or pressure no palpitation Patient complains of weakness only Objective: General: no acute distress HEENT: NC/AT. pupils are equal. round. NECK:. no stridor. CV: RRR. systolic murmur; no gallop or rubs. PULM: no wheezing or rhonchi. GI: SOFT, NT, ND, no rebound or guarding Extremity: trace B/L LE edema. no clubbing. neuro: awake and alert,. Psych: calm and pleasant rectal: deferred Objective Vitals Vital Signs Date Temp Pulse Resp B/P (MAP) Pulse Ox O2 O2 Flow FiO2 Time Delivery Rate 12/31/18 98.0 85 18 110/80 97 Room Air 11:38 (90) 12/30/18 2.0 20:00 Intake and Output 12/30/18 12/30/18 12/31/18 1515:00 23:00 07:00 IntakeIntake Total 920 ml 320 ml OutputOutput Total 780 ml 800 ml BalanceBalance 140 ml -480 ml Results/Medications Result Diagram: 12/31/18 0536 12/31/18 0536 Results 24 hrs Laboratory Tests Test 12/31/18 05:36 White Blood Count 11.0 #H Red Blood Count 4.27 L Hemoglobin 13.4 L Hematocrit 40.2 L Mean Corpuscular Volume 94.1 Mean Corpuscular Hemoglobin 31.4 Mean Corpuscular Hemoglobin Concent 33.3 Red Cell Distribution Width 13.4 Platelet Count 149 Mean Platelet Volume 10.4 Immature Granulocytes % 0.500 H Neutrophils % 66.9 Lymphocytes % 18.6 Monocytes % 12.4 H Eosinophils % 1.3 Basophils % 0.3 Nucleated Red Blood Cells % 0.0 Immature Granulocytes # 0.060 H Neutrophils # 7.4 Lymphocytes # 2.1 Monocytes # 1.4 H Eosinophils # 0.1 Basophils # 0.0 Nucleated Red Blood Cells # 0.0 Sodium Level 143 Potassium Level 4.2 Chloride Level 115 H Carbon Dioxide Level 22 Anion Gap 6 Blood Urea Nitrogen 11 Creatinine 1.00 Est Glomerular Filtrat Rate mL/min > 60 Glucose Level 104 Calcium Level 8.2 L Home Meds Reported Medications Inulin/Chromium Picolinate (Fiber Gummies) 1 Each Tab.chew, 1 EACH PO DAILY, TAB.CHEW 12/27/18 [Herbal Prostate] No Conflict Check, 2 TAB PO DAILY 12/27/18 Lactobacillus Combo No.10 (Probiotic) 1 Each Capsule, 1 CAP PO DAILY, CAP 12/27/18 [place]-3 Fatty Acids/Fish Oil ([place] 3 1,000 mg Softgel) 1 Each Capsule, 1 EACH PO DAILY, CAP 12/27/18 Multivitamins* (Theragran*) 1 Tab Tab, 1 TAB PO DAILY, TAB 12/27/18 [B Complex 50MG] No Conflict Check, 1 TAB PO DAILY 12/27/18 Cholecalciferol (Vitamin D3) (Vitamin D-3) 2,000 Unit Tablet, 2000 UNIT PO DAILY, TAB 12/27/18 Magnesium Oxide* (Magnesium Oxide*) 400 Mg Tablet, 400 MG PO DAILY, TAB 12/27/18 [Potassium 595MG] No Conflict Check, 1 TAB PO BID 12/27/18 Finasteride* (Finasteride*) 5 Mg Tablet, 5 MG PO DAILY, TAB 12/27/18 Alendronate Sodium* (Fosamax*) 70 Mg Tablet, 70 MG PO Q7D, #4 TAB 12/27/18 Metoprolol Succinate* (Toprol XL*) 50 Mg Tab.er.24h, 50 MG PO DAILY, #30 TAB 12/27/18 Topiramate* (Topamax*) 100 Mg Tablet, 200 MG PO BID, TAB 12/27/18 Oxcarbazepine* (Trileptal*) 300 Mg Tablet, 900 MG PO BID, TAB 12/27/18 Omeprazole* (Omeprazole*) 20 Mg Capsule.dr, 20 MG PO BID, #60 CAP 12/27/18 Fenofibrate, Micronized* (Fenofibrate*) 160 Mg Tablet, 160 MG PO DAILY, TAB 12/27/18 Losartan Potassium* (Losartan Potassium*) 25 Mg Tablet, 25 MG PO DAILY, TAB 12/27/18 Sitagliptin* (Januvia*) 50 Mg Tablet, 50 MG PO DAILY, #30 TAB 12/27/18 Medications Current Medications IV Flush (NS 3 ml) 3 ml PER PROTOCOL IV ; Start 12/27/18 at 16:00 Ondansetron HCl (Zofran Inj) 4 mg Q6H PRN IV NAUSEA/VOMITING; Start 12/27/18 at 16:00 Acetaminophen (Tylenol Tab) 650 mg Q6H PRN PO .PAIN 1-3 OR TEMP Last administered on 12/30/18 02:33; Admin Dose 650 MG; Start 12/27/18 at 16:00 Morphine Sulfate (morphine) 2 mg Q4H PRN IV .SEVERE PAIN 7-10; Start 12/27/18 at 16:00 Zolpidem Tartrate (Ambien) 5 mg QHS PRN PO .INSOMNIA; Start 12/27/18 at 16:00 Ceftriaxone Sodium 50 ml @ 100 mls/hr Q24H IVPB Last administered on 12/31/18 11:14; Admin Dose 100 MLS/HR; Start 12/28/18 at 12:00 Finasteride (Proscar) 5 mg DAILY PO Last administered on 12/31/18 08:57; Admin Dose 5 MG; Start 12/28/18 at 09:00 Multivitamins Therapeutic (Theragran) 1 tab DAILY PO Last administered on 12/31/18 08:57; Admin Dose 1 TAB; Start 12/28/18 at 09:00 Oxcarbazepine (Trileptal) 900 mg BID PO Last administered on 12/31/18 08:57; Admin Dose 900 MG; Start 12/27/18 at 21:00 Topiramate (Topamax) 200 mg BID PO Last administered on 12/31/18 08:59; Admin Dose 200 MG; Start 12/27/18 at 21:00 Cholecalciferol (Vitamin D) 2,000 unit DAILY PO Last administered on 12/31/18 08:59; Admin Dose 2,000 UNIT; Start 12/28/18 at 09:00 Fenofibrate (Tricor) 145 mg DAILY PO Last administered on 12/31/18 08:58; Admin Dose 145 MG; Start 12/28/18 at 09:00 Fish Oil (Fish Oil) 1,000 mg DAILY PO Last administered on 12/31/18 08:59; Admin Dose 1,000 MG; Start 12/28/18 at 09:00 Lorazepam (Ativan) 2 mg Q10M PRN IV seizure; Start 12/27/18 at 22:00 Docusate Sodium (Colace) 100 mg Q12H PO Last administered on 12/31/18 04:00; Admin Dose 100 MG; Start 12/29/18 at 16:00 Pantoprazole (Protonix Tab) 40 mg DAILY PO Last administered on 12/31/18 08:58; Admin Dose 40 MG; Start 12/30/18 at 09:00 Heparin Sodium (Porcine) (Heparin (5000 Units/1ml)) 5,000 unit BID SC Last administered on 12/30/18 22:43; Admin Dose 5,000 UNIT; Start 12/29/18 at 21:00 Linagliptin (Tradjenta) 5 mg DAILY PO Last administered on 12/30/18 08:59; Admin Dose 5 MG; Start 12/30/18 at 09:00 Lactobacillus Acidophilus/ Rhamnosus (Culturelle) 1 cap BID PO Last administered on 12/31/18 08:59; Admin Dose 1 CAP; Start 12/29/18 at 11:30 Metoprolol Tartrate (Lopressor) 50 mg BID PO Last administered on 12/31/18 08:59; Admin Dose 50 MG; Start 12/29/18 at 21:00 Amiodarone HCl (Cordarone) 200 mg BID PO Last administered on 12/31/18 08:58; Admin Dose 200 MG; Start 12/31/18 at 09:00 Aspirin (Aspirin) 81 mg DAILY PO Last administered on 12/31/18 11:14; Admin Dose 81 MG; Start 12/31/18 at 11:00 Atorvastatin Calcium (Lipitor) 40 mg HS PO ; Start 12/31/18 at 21:00 Diltiazem HCl (Cardizem Iv) 5 mg Q1H PRN IV sustained HR>140; Start 12/31/18 at 12:30 Assessment/Plan Hospital Course (Demo Recall) P-SVT/paroxysmal atrial fibrillation with Preserved left ventricular ejection fraction Mild to moderate mitral valve regurgitation S/p sepsis secondary to UTI Volume overload Brain tumor Seizure disorder Diabetes Hypertension Continue with the beta-darby. Anticoagulation as per neurology recommendations Antibiotic as per internal medicine electrolytes were corrected as needed Cardizem IV as needed Thank you for his referral. We will continue to follow along with you until Dr. Daniels returns on Wednesday [facility] MD December 31, 2018 12:24
[2018-12-31] MEDS ORDERED: DILTIAZEM 25 MG INJ IV PRN (12:30)
[2018-12-31] MEDS ORDERED: ATORVASTATIN 40 MG TAB PO SCH (21:00)
[2019-01-01] VITALS (9 sets, daily range): BP systolic 117–124; BP diastolic 66–77; PULSE 67–82; RESP 18–19
[2019-01-01] MEDS: DOCUSATE SODIUM 100 MG CAP PO SCH ×2 (05:55→15:11)
[2019-01-01] MEDS: FISH OIL 1,000 MG CAP PO SCH (09:00)
[2019-01-01] MEDS ORDERED: POTASSIUM PHOSPHATE 20 MEQ in SOD CHLORIDE 0.9% 250 ML IVPB ONE (10:00)
[2019-01-01] MEDS: TOPIRAMATE 100 MG TAB PO SCH ×2 (10:01→20:28)
[2019-01-01] MEDS: OXCARBAZEPINE 300 MG TAB PO SCH ×2 (10:01→20:30)
[2019-01-01] MEDS: METOPROLOL 50 MG TAB PO SCH ×2 (10:04→20:29)
[2019-01-01] MEDS: LACTOBACILLUS RHAMNOSUS CAP PO SCH ×2 (10:04→20:28)
[2019-01-01] MEDS: FINASTERIDE 5 MG TAB PO SCH (10:04)
[2019-01-01] MEDS: MULTIVITAMINS THERAPEUTIC TAB PO SCH (10:04)
[2019-01-01] MEDS: CHOLECALCIFEROL 2,000 UNIT CAP PO SCH (10:05)
[2019-01-01] MEDS: LINAGLIPTIN 5 MG TABLET PO SCH (10:05)
[2019-01-01] MEDS: AMIODARONE 200 MG TAB PO SCH ×2 (10:05→20:27)
[2019-01-01] MEDS: FENOFIBRATE 145 MG TAB PO SCH (10:05)
[2019-01-01] MEDS: PANTOPRAZOLE (EC) 40 MG TAB PO SCH (10:06)
[2019-01-01] MEDS: HEPARIN 5,000 UNIT/1 ML VIAL SC SCH ×2 (10:16→21:00)
[2019-01-01] MEDS: ASPIRIN 81 MG TAB PO SCH (10:35)
--- NOTE | 2019-01-01 11:12 | CONS ---
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 He was noted on 12/27 to have a generalized convulsion that was self-limited, for which neurology is consulted. It is likely that his current infection is lowering his seizure threshold. MRI brain is most notable for a small acute infarct in the L posterior temporal lobe as well as encephalomalacia in the R frontal operculum that corresponds with the previous HCT Echo is unrevealing. LDL 56 P: Clarify brain neoplasm hx when able Add ASA for secondary stroke prevention; LDL is at goal Add CUS, ESR, RPR Await trileptal level Ok to cont Trileptal and topamax per ops for now, pending the above Recommend klonopin 0.25mg BID in the interim, pending the trileptal level Ativan IV PRN prolonged seizure or for cluster Cont other medical management per primary Will follow clinically Consultation Date/Type/Reason Admit Date/Time December 27, 2018 at 13:57 Type of Consult Neurology Reason for Consultation breakthrough seizures Requesting Provider: STU KENNEDY Date/Time of Note DATE: 01/01/19 TIME: 11:11 24 HR Interval Summary Free Text/Dictation Continues acute care. S/p MRI. The pt reportedly has been having recurrent episodes of SVT over the past few days, though none overnight. Exam Vital Signs Vitals Vital Signs Date Temp Pulse Resp B/P (MAP) Pulse Ox O2 O2 Flow FiO2 Time Delivery Rate 01/01/19 74 09:11 01/01/19 98.1 18 119/66 97 07:34 (83) 12/31/18 Nasal 2.0 21:00 Cannula Intake and Output 12/31/18 12/31/18 01/01/19 1515:00 23:00 07:00 IntakeIntake Total 940 ml 800 ml OutputOutput Total 780 ml BalanceBalance 160 ml 800 ml NAZ [employer] January 01, 2019 11:12
--- NOTE | 2019-01-01 13:08 | CONS ---
Consult Date/Type/Reason Admit Date/Time December 27, 2018 at 13:57 Initial Consult Date Type of Consultation: CV Requesting Provider: STU KENNEDY Date/Time of Note DATE: 01/01/19 TIME: 13:05 Subjective Cardiology follow-up progress note Subjective: Discussed with the staff telemetry was reviewed discussed with the patient family including his and his sister Patient WITH no more recurrent SVT overnight. No chest pain or pressure no palpitation Objective: General: no acute distress HEENT: NC/AT. pupils are equal. round. NECK:. no stridor. CV: RRR. systolic murmur; no gallop or rubs. PULM: no wheezing or rhonchi. GI: SOFT, NT, ND, no rebound or guarding Extremity: trace B/L LE edema. no clubbing. neuro: awake and alert,. Psych: calm and pleasant rectal: deferred MRI BRAIN 1. Mild diffuse atrophy. 2. Microangiopathic ischemic changes. 3. Punctate focal left posterior temporal acute infarct. 4. Small focal right opercular encephalomalacia with surrounding gliosis which may be due to a prior infarct versus trauma. This corresponds to the CT abnormality. 5. Minimal small left cerebellar lacunar infarcts. 6. Mild mucosal thickening ethmoid air cells and inferior maxillary sinuses. Objective Vitals Vital Signs Date Temp Pulse Resp B/P (MAP) Pulse Ox O2 O2 Flow FiO2 Time Delivery Rate 01/01/19 67 12:52 01/01/19 98.4 19 121/75 97 11:31 (90) 01/01/19 Nasal 2.0 09:00 Cannula Intake and Output 12/31/18 12/31/18 01/01/19 1515:00 23:00 07:00 IntakeIntake Total 940 ml 800 ml OutputOutput Total 780 ml BalanceBalance 160 ml 800 ml Results/Medications Result Diagram: 01/01/19 0604 01/01/19 0604 Results 24 hrs Laboratory Tests Test 01/01/19 06:04 01/01/19 10:03 White Blood Count 14.0 #H Red Blood Count 4.33 L Hemoglobin 13.7 L Hematocrit 40.7 L Mean Corpuscular Volume 94.0 Mean Corpuscular Hemoglobin 31.6 Mean Corpuscular Hemoglobin Concent 33.7 Red Cell Distribution Width 13.1 Platelet Count 174 Mean Platelet Volume 10.3 Immature Granulocytes % 0.600 H Neutrophils % 75.0 Lymphocytes % 14.1 L Monocytes % 8.7 Eosinophils % 1.3 Basophils % 0.3 Nucleated Red Blood Cells % 0.0 Immature Granulocytes # 0.080 H Neutrophils # 10.5 H Lymphocytes # 2.0 Monocytes # 1.2 H Eosinophils # 0.2 Basophils # 0.0 Nucleated Red Blood Cells # 0.0 Sodium Level 143 Potassium Level 3.8 Chloride Level 117 H Carbon Dioxide Level 17 L Anion Gap 9 Blood Urea Nitrogen 14 Creatinine 0.82 Est Glomerular Filtrat Rate mL/min > 60 Glucose Level 94 Calcium Level 8.2 L Phosphorus Level 2.3 L Magnesium Level 2.2 Bedside Glucose 101 Home Meds Reported Medications Inulin/Chromium Picolinate (Fiber Gummies) 1 Each Tab.chew, 1 EACH PO DAILY, TAB.CHEW 12/27/18 [Herbal Prostate] No Conflict Check, 2 TAB PO DAILY 12/27/18 Lactobacillus Combo No.10 (Probiotic) 1 Each Capsule, 1 CAP PO DAILY, CAP 12/27/18 [place]-3 Fatty Acids/Fish Oil ([place] 3 1,000 mg Softgel) 1 Each Capsule, 1 EACH PO DAILY, CAP 12/27/18 Multivitamins* (Theragran*) 1 Tab Tab, 1 TAB PO DAILY, TAB 12/27/18 [B Complex 50MG] No Conflict Check, 1 TAB PO DAILY 12/27/18 Cholecalciferol (Vitamin D3) (Vitamin D-3) 2,000 Unit Tablet, 2000 UNIT PO DAILY, TAB 12/27/18 Magnesium Oxide* (Magnesium Oxide*) 400 Mg Tablet, 400 MG PO DAILY, TAB 12/27/18 [Potassium 595MG] No Conflict Check, 1 TAB PO BID 12/27/18 Finasteride* (Finasteride*) 5 Mg Tablet, 5 MG PO DAILY, TAB 12/27/18 Alendronate Sodium* (Fosamax*) 70 Mg Tablet, 70 MG PO Q7D, #4 TAB 12/27/18 Metoprolol Succinate* (Toprol XL*) 50 Mg Tab.er.24h, 50 MG PO DAILY, #30 TAB 12/27/18 Topiramate* (Topamax*) 100 Mg Tablet, 200 MG PO BID, TAB 12/27/18 Oxcarbazepine* (Trileptal*) 300 Mg Tablet, 900 MG PO BID, TAB 12/27/18 Omeprazole* (Omeprazole*) 20 Mg Capsule.dr, 20 MG PO BID, #60 CAP 12/27/18 Fenofibrate, Micronized* (Fenofibrate*) 160 Mg Tablet, 160 MG PO DAILY, TAB 12/27/18 Losartan Potassium* (Losartan Potassium*) 25 Mg Tablet, 25 MG PO DAILY, TAB 12/27/18 Sitagliptin* (Januvia*) 50 Mg Tablet, 50 MG PO DAILY, #30 TAB 12/27/18 Medications Current Medications IV Flush (NS 3 ml) 3 ml PER PROTOCOL IV ; Start 12/27/18 at 16:00 Ondansetron HCl (Zofran Inj) 4 mg Q6H PRN IV NAUSEA/VOMITING; Start 12/27/18 at 16:00 Acetaminophen (Tylenol Tab) 650 mg Q6H PRN PO .PAIN 1-3 OR TEMP Last administered on 12/30/18at 02:33; Admin Dose 650 MG; Start 12/27/18 at 16:00 Morphine Sulfate (morphine) 2 mg Q4H PRN IV .SEVERE PAIN 7-10; Start 12/27/18 at 16:00 Zolpidem Tartrate (Ambien) 5 mg QHS PRN PO .INSOMNIA; Start 12/27/18 at 16:00 Ceftriaxone Sodium 50 ml @ 100 mls/hr Q24H IVPB Last administered on 12/31/18at 11:14; Admin Dose 100 MLS/HR; Start 12/28/18 at 12:00 Finasteride (Proscar) 5 mg DAILY PO Last administered on 01/01/19at 10:04; Admin Dose 5 MG; Start 12/28/18 at 09:00 Multivitamins Therapeutic (Theragran) 1 tab DAILY PO Last administered on 01/01/19at 10:04; Admin Dose 1 TAB; Start 12/28/18 at 09:00 Oxcarbazepine (Trileptal) 900 mg BID PO Last administered on 01/01/19at 10:01; Admin Dose 900 MG; Start 12/27/18 at 21:00 Topiramate (Topamax) 200 mg BID PO Last administered on 01/01/19 10:01; Admin Dose 200 MG; Start 12/27/18 at 21:00 Cholecalciferol (Vitamin D) 2,000 unit DAILY PO Last administered on 01/01/19 10:05; Admin Dose 2,000 UNIT; Start 12/28/18 at 09:00 Fenofibrate (Tricor) 145 mg DAILY PO Last administered on 01/01/19 10:05; Admin Dose 145 MG; Start 12/28/18 at 09:00 Fish Oil (Fish Oil) 1,000 mg DAILY PO Last administered on 12/31/18 08:59; Admin Dose 1,000 MG; Start 12/28/18 at 09:00 Lorazepam (Ativan) 2 mg Q10M PRN IV seizure; Start 12/27/18 at 22:00 Docusate Sodium (Colace) 100 mg Q12H PO Last administered on 01/01/19 05:55; Admin Dose 100 MG; Start 12/29/18 at 16:00 Pantoprazole (Protonix Tab) 40 mg DAILY PO Last administered on 01/01/19 10:06; Admin Dose 40 MG; Start 12/30/18 at 09:00 Heparin Sodium (Porcine) (Heparin (5000 Units/1ml)) 5,000 unit BID SC Last administered on 01/01/19 10:16; Admin Dose 5,000 UNIT; Start 12/29/18 at 21:00 Linagliptin (Tradjenta) 5 mg DAILY PO Last administered on 01/01/19 10:05; Admin Dose 5 MG; Start 12/30/18 at 09:00 Lactobacillus Acidophilus/ Rhamnosus (Culturelle) 1 cap BID PO Last administered on 01/01/19 10:04; Admin Dose 1 CAP; Start 12/29/18 at 11:30 Metoprolol Tartrate (Lopressor) 50 mg BID PO Last administered on 01/01/19 10:04; Admin Dose 50 MG; Start 12/29/18 at 21:00 Amiodarone HCl (Cordarone) 200 mg BID PO Last administered on 01/01/19 10:05; Admin Dose 200 MG; Start 12/31/18 at 09:00 Diltiazem HCl (Cardizem Iv) 5 mg Q1H PRN IV sustained HR>140; Start 12/31/18 at 12:30 Potassium Phosphate 20 meq/ Sodium Chloride 254.5455 ml @ 63.636 m... ONCE ONCE IVPB Last administered on 01/01/19at 10:38; Admin Dose 63.636 MLS/HR; Start 01/01/19 at 10:00; Stop 01/01/19 at 13:59 Aspirin (Aspirin) 81 mg DAILY PO Last administered on 01/01/19at 10:35; Admin Dose 81 MG; Start 01/01/19 at 09:30 Assessment/Plan Hospital Course (Demo Recall) P-SVT/ with Preserved left ventricular ejection fraction Mild to moderate mitral valve regurgitation S/p sepsis secondary to UTI Volume overload Brain tumor Seizure disorder Diabetes Hypertension Continue with the beta-darby. Anticoagulation as per neurology recommendations Antibiotic as per internal medicine electrolytes were corrected as needed Cardizem IV as needed Thank you for his referral. We will continue to follow along with you until Dr. Daniels returns on Wednesday [facility] MD January 01, 2019 13:08
[2019-01-01] MEDS: CEFTRIAXONE 1 GM/50 ML (PMX) 50 ML IVPB SCH (15:03)
--- NOTE | 2019-01-01 16:35 | PN ---
Date/Time of Note Date/Time of Note DATE: 01/01/19 TIME: 16:30 Assessment/Plan VTE Prophylaxis Risk score (from Ns)>0 risk: 5 SCD applied (from Ns): No SCD contraindicated: other Pharmacological prophylaxis: heparin Lines/Catheters IV [facility]from [facility] [place] Lock Urinary Cath still in place: No Assessment/Plan Hospital Course Subjective: Patient found with acute stroke on MRI of the brain. Per nursing staff still unsteady on his feet. Still complaining of some dysuria, but no fevers. Seen by cardiology neurology teams as well. Patient refused to take fish oil this morning. Objective: General: Awake, alert, answering questions, at bedside HEENT: NC/ AT. PERRL. EOM intact Neck: supple CVS: S1, S2 heard no murmurs. no pain on chest wall palpation Lungs: CTA b/l. no wheezing or rhonchi Abd: soft, NT +BS, ND Ext: No lower extremity edema bilaterally Neuro: No focal deficits Assessment and plan: 68M who presents with: 1. Sepsis secondary to urinary tract infection: Slowly improving although white blood cell count slightly more elevated today, no fevers.-urine cultures growing E. coli, resistant to fluoroquinolones and ampicillin only -Based on sensitivities but because the white blood cell count increased, will stop Rocephin and start cefepime 2 g IV every 12 hours for now -Follow-up CBC in the morning 2. New onset cardiac arrythmia -resolved now; arrhythmia was SVT occurred 2 days ago, at that time was on amiodarone drip IV, but again has been rate controlled and tolerating p.o. blood pressure medicines which are maintaining this. -cardio following and appreciate input -continue p.o. amiodarone for now -f/u echo findings 3. Chronic seizure disorder with acute stroke-reported breakthrough seizures on December 27, 2018 per , no further seizure events or concern for seizure events since then -Appreciate neurology recommendations, continue Topamax and Trileptal for now, continue Lipitor and aspirin as well for the stroke -Monitor for signs of seizures follow-up further neurology recommendations -Continue seizure precautions 4. Acute renal insufficiency: Resolved - monitor 5. Status post recent TURP- 2 months ago for BPH with obstructive symptoms - Patient's procedure was complicated by reduced urinary output and severe pain, he was noted to have a clot and is status post in office irrigation and dilation the day prior to admission-Renal ultrasound was done and is unremarkable without evidence of calculi or obstructive uropathy. -Monitor for now -Previous hospitalist spoke with OP urologist Dr. White recently, patient was recently dilated in office, monitor PVR, only attempt de león if PVR is >250cc or patient not responding to therapy. otherwise, treat UTI and f/u with him in office o/p. Call anytime with questions [phone] 6. Chronic dyslipidemia -given the acute stroke, will switch back to Lipitor 7. Hypertension with good control on losartan -Continue current medication 8. Severe Lethargy with encephalopathy (acute), likely toxic metabolic - klonopin dced -continue home seizure meds and use benzodiazepines PRN only -f/u MRI brain as well, Limit all sedating drugs -Continue PT -they are recommending SNF placement versus home with home health PT and equipment Dispo; family now wants patient home and patient agrees with home health PT, and equipment. Order has been placed for case management to help arrange this. Likely ready for discharge in the next 1 to 2 days once he further recovers from the urinary tract infection, heart remained stable, and from the acute stroke. Result Diagram: 01/01/19 0604 01/01/19 0604 Results 24hrs Laboratory Tests Test 01/01/19 06:04 01/01/19 10:03 White Blood Count 14.0 #H Red Blood Count 4.33 L Hemoglobin 13.7 L Hematocrit 40.7 L Mean Corpuscular Volume 94.0 Mean Corpuscular Hemoglobin 31.6 Mean Corpuscular Hemoglobin Concent 33.7 Red Cell Distribution Width 13.1 Platelet Count 174 Mean Platelet Volume 10.3 Immature Granulocytes % 0.600 H Neutrophils % 75.0 Lymphocytes % 14.1 L Monocytes % 8.7 Eosinophils % 1.3 Basophils % 0.3 Nucleated Red Blood Cells % 0.0 Immature Granulocytes # 0.080 H Neutrophils # 10.5 H Lymphocytes # 2.0 Monocytes # 1.2 H Eosinophils # 0.2 Basophils # 0.0 Nucleated Red Blood Cells # 0.0 Sodium Level 143 Potassium Level 3.8 Chloride Level 117 H Carbon Dioxide Level 17 L Anion Gap 9 Blood Urea Nitrogen 14 Creatinine 0.82 Est Glomerular Filtrat Rate mL/min > 60 Glucose Level 94 Calcium Level 8.2 L Phosphorus Level 2.3 L Magnesium Level 2.2 Bedside Glucose 101 Exam/Review of Systems Exam Vitals Vital Signs Date Temp Pulse Resp B/P (MAP) Pulse Ox O2 O2 Flow FiO2 Time Delivery Rate 01/01/19 98.4 68 18 117/67 98 16:03 (84) 01/01/19 Nasal 2.0 09:00 Cannula Intake and Output 12/31/18 12/31/18 01/01/19 1515:00 23:00 07:00 IntakeIntake Total 940 ml 800 ml OutputOutput Total 780 ml BalanceBalance 160 ml 800 ml Results Results 24hrs Laboratory Tests Test 01/01/19 06:04 01/01/19 10:03 White Blood Count 14.0 #H Red Blood Count 4.33 L Hemoglobin 13.7 L Hematocrit 40.7 L Mean Corpuscular Volume 94.0 Mean Corpuscular Hemoglobin 31.6 Mean Corpuscular Hemoglobin Concent 33.7 Red Cell Distribution Width 13.1 Platelet Count 174 Mean Platelet Volume 10.3 Immature Granulocytes % 0.600 H Neutrophils % 75.0 Lymphocytes % 14.1 L Monocytes % 8.7 Eosinophils % 1.3 Basophils % 0.3 Nucleated Red Blood Cells % 0.0 Immature Granulocytes # 0.080 H Neutrophils # 10.5 H Lymphocytes # 2.0 Monocytes # 1.2 H Eosinophils # 0.2 Basophils # 0.0 Nucleated Red Blood Cells # 0.0 Sodium Level 143 Potassium Level 3.8 Chloride Level 117 H Carbon Dioxide Level 17 L Anion Gap 9 Blood Urea Nitrogen 14 Creatinine 0.82 Est Glomerular Filtrat Rate mL/min > 60 Glucose Level 94 Calcium Level 8.2 L Phosphorus Level 2.3 L Magnesium Level 2.2 Bedside Glucose 101 Medications Medication Current Medications IV Flush (NS 3 ml) 3 ml PER PROTOCOL IV ; Start 12/27/18 at 16:00 Ondansetron HCl (Zofran Inj) 4 mg Q6H PRN IV NAUSEA/VOMITING; Start 12/27/18 at 16:00 Acetaminophen (Tylenol Tab) 650 mg Q6H PRN PO .PAIN 1-3 OR TEMP Last administered on 12/30/18at 02:33; Admin Dose 650 MG; Start 12/27/18 at 16:00 Morphine Sulfate (morphine) 2 mg Q4H PRN IV .SEVERE PAIN 7-10; Start 12/27/18 at 16:00 Zolpidem Tartrate (Ambien) 5 mg QHS PRN PO .INSOMNIA; Start 12/27/18 at 16:00 Finasteride (Proscar) 5 mg DAILY PO Last administered on 01/01/19 10:04; Admin Dose 5 MG; Start 12/28/18 at 09:00 Multivitamins Therapeutic (Theragran) 1 tab DAILY PO Last administered on 01/01/19 10:04; Admin Dose 1 TAB; Start 12/28/18 at 09:00 Oxcarbazepine (Trileptal) 900 mg BID PO Last administered on 01/01/19 10:01; Admin Dose 900 MG; Start 12/27/18 at 21:00 Topiramate (Topamax) 200 mg BID PO Last administered on 01/01/19 10:01; Admin Dose 200 MG; Start 12/27/18 at 21:00 Cholecalciferol (Vitamin D) 2,000 unit DAILY PO Last administered on 01/01/19 10:05; Admin Dose 2,000 UNIT; Start 12/28/18 at 09:00 Lorazepam (Ativan) 2 mg Q10M PRN IV seizure; Start 12/27/18 at 22:00 Docusate Sodium (Colace) 100 mg Q12H PO Last administered on 01/01/19 15:11; Admin Dose 100 MG; Start 12/29/18 at 16:00 Pantoprazole (Protonix Tab) 40 mg DAILY PO Last administered on 01/01/19 10:06; Admin Dose 40 MG; Start 12/30/18 at 09:00 Heparin Sodium (Porcine) (Heparin (5000 Units/1ml)) 5,000 unit BID SC Last administered on 01/01/19 10:16; Admin Dose 5,000 UNIT; Start 12/29/18 at 21:00 Linagliptin (Tradjenta) 5 mg DAILY PO Last administered on 01/01/19 10:05; Admin Dose 5 MG; Start 12/30/18 at 09:00 Lactobacillus Acidophilus/ Rhamnosus (Culturelle) 1 cap BID PO Last administered on 01/01/19 10:04; Admin Dose 1 CAP; Start 12/29/18 at 11:30 Metoprolol Tartrate (Lopressor) 50 mg BID PO Last administered on 01/01/19at 10:04; Admin Dose 50 MG; Start 12/29/18 at 21:00 Amiodarone HCl (Cordarone) 200 mg BID PO Last administered on 01/01/19at 10:05; Admin Dose 200 MG; Start 12/31/18 at 09:00 Diltiazem HCl (Cardizem Iv) 5 mg Q1H PRN IV sustained HR>140; Start 12/31/18 at 12:30 Aspirin (Aspirin) 81 mg DAILY PO Last administered on 01/01/19at 10:35; Admin Dose 81 MG; Start 01/01/19 at 09:30 Cefepime HCl 50 ml @ 100 mls/hr Q12 IVPB ; Start 01/01/19 at 16:30; Status UNV Atorvastatin Calcium (Lipitor) 40 mg HS PO ; Start 01/01/19 at 21:00; Status UNV JOVON CALDWELL January 01, 2019 16:35
[2019-01-01] MEDS: CEFEPIME 2GM/50 ML (PMX) 50 ML IVPB SCH (18:10)
[2019-01-01] MEDS: ATORVASTATIN 40 MG TAB PO SCH (20:26)
[2019-01-02] VITALS (10 sets, daily range): BP systolic 98–124; BP diastolic 57–71; PULSE 59–75; RESP 17–18
[2019-01-02] MEDS: DOCUSATE SODIUM 100 MG CAP PO SCH ×2 (04:00→16:38)
[2019-01-02] MEDS: METOPROLOL 50 MG TAB PO SCH (09:00)
[2019-01-02] MEDS: LINAGLIPTIN 5 MG TABLET PO SCH (09:00)
[2019-01-02] MEDS: HEPARIN 5,000 UNIT/1 ML VIAL SC SCH ×2 (09:00→21:57)
[2019-01-02] MEDS: CEFEPIME 2GM/50 ML (PMX) 50 ML IVPB SCH ×2 (09:08→21:23)
[2019-01-02] MEDS: ASPIRIN 81 MG TAB PO SCH (09:11)
[2019-01-02] MEDS: FINASTERIDE 5 MG TAB PO SCH (09:11)
[2019-01-02] MEDS: TOPIRAMATE 100 MG TAB PO SCH ×2 (09:13→21:24)
[2019-01-02] MEDS: PANTOPRAZOLE (EC) 40 MG TAB PO SCH (09:13)
[2019-01-02] MEDS: AMIODARONE 200 MG TAB PO SCH ×2 (09:13→21:25)
[2019-01-02] MEDS: LACTOBACILLUS RHAMNOSUS CAP PO SCH ×2 (09:14→21:24)
[2019-01-02] MEDS: OXCARBAZEPINE 300 MG TAB PO SCH ×2 (09:14→21:24)
[2019-01-02] MEDS: CHOLECALCIFEROL 2,000 UNIT CAP PO SCH (09:14)
[2019-01-02] MEDS: MULTIVITAMINS THERAPEUTIC TAB PO SCH (09:14)
--- NOTE | 2019-01-02 12:29 | CONS ---
Assessment/Plan Assessment/Plan Hospital Course (Demo Recall) SVT/paroxysmal atrial fibrillation Acute CVA Preserved left ventricular ejection fraction Mild to moderate mitral valve regurgitation Sepsis secondary to UTI Brain tumor Seizure disorder Diabetes Hypertension -Patient with acute CVA noted on MRI brain. Awaiting neurology input regarding if able to start anticoagulation given his extensive neurologic history. Given patient with history of old infarcts and recurrent acute CVA, would prefer to start anticoagulation if no significant contraindication -Patient overall remains in sinus rhythm, given blood pressure lower side, with decreased dose of beta-darby, continue amiodarone -Continue physical therapy -Plan of care and findings discussed with patient and at bedside as well as primary hospitalist and nurse Consultation Date/Type/Reason Admit Date/Time December 27, 2018 at 13:57 Initial Consult Date Type of Consult Cardiology Requesting Provider: STU KENNEDY Date/Time of Note DATE: 01/02/19 TIME: 12:27 24 HR Interval Summary Free Text/Dictation No shortness of breath, palpitations, chest pain. In discussion with nursing staff and family, and bleeding but with assistance Exam/Review of Systems Vital Signs Vitals Vital Signs Date Temp Pulse Resp B/P (MAP) Pulse Ox O2 O2 Flow FiO2 Time Delivery Rate 01/02/19 97.2 75 17 111/64 97 11:47 (80) 01/02/19 Nasal 2.0 08:30 Cannula 01/02/19 28 02:23 Intake and Output 01/01/19 01/01/19 01/02/19 1515:00 23:00 07:00 IntakeIntake Total 700 ml 400 ml BalanceBalance 700 ml 400 ml Exam Constitutional: alert (Following commands, no apparent distress, at times difficulty with speech) Respiratory: other (Coarse breath sounds bilaterally, no wheezing) Cardiovascular: regular rate and rhythm (S1-S2 heard) Gastrointestinal: soft, non-tender, bowel sounds Extremities: edema Labs Result Diagram: 01/02/19 0607 01/02/19 0607 Results 24hrs Laboratory Tests Test 01/02/19 06:07 01/02/19 09:33 White Blood Count 11.5 H Red Blood Count 4.41 L Hemoglobin 13.8 L Hematocrit 41.0 L Mean Corpuscular Volume 93.0 Mean Corpuscular Hemoglobin 31.3 Mean Corpuscular Hemoglobin Concent 33.7 Red Cell Distribution Width 13.1 Platelet Count 212 # Mean Platelet Volume 10.5 H Immature Granulocytes % 0.800 H Neutrophils % 65.8 Lymphocytes % 21.1 Monocytes % 8.8 Eosinophils % 3.1 Basophils % 0.4 Nucleated Red Blood Cells % 0.0 Immature Granulocytes # 0.090 H Neutrophils # 7.6 H Lymphocytes # 2.4 Monocytes # 1.0 H Eosinophils # 0.4 Basophils # 0.1 Nucleated Red Blood Cells # 0.0 Erythrocyte Sedimentation Rate 40.0 H Sodium Level 144 Potassium Level 3.8 Chloride Level 116 H Carbon Dioxide Level 17 L Anion Gap 11 Blood Urea Nitrogen 15 Creatinine 0.83 Est Glomerular Filtrat Rate mL/min > 60 Glucose Level 84 Calcium Level 8.5 Phosphorus Level 3.2 Magnesium Level 2.3 Bedside Glucose 88 Medications Medications Current Medications IV Flush (NS 3 ml) 3 ml PER PROTOCOL IV ; Start 12/27/18 at 16:00 Ondansetron HCl (Zofran Inj) 4 mg Q6H PRN IV NAUSEA/VOMITING; Start 12/27/18 at 16:00 Acetaminophen (Tylenol Tab) 650 mg Q6H PRN PO .PAIN 1-3 OR TEMP Last administered on 12/30/18at 02:33; Admin Dose 650 MG; Start 12/27/18 at 16:00 Morphine Sulfate (morphine) 2 mg Q4H PRN IV .SEVERE PAIN 7-10; Start 12/27/18 at 16:00 Zolpidem Tartrate (Ambien) 5 mg QHS PRN PO .INSOMNIA; Start 12/27/18 at 16:00 Finasteride (Proscar) 5 mg DAILY PO Last administered on 01/02/19at 09:11; Admin Dose 5 MG; Start 12/28/18 at 09:00 Multivitamins Therapeutic (Theragran) 1 tab DAILY PO Last administered on 01/02/19 09:14; Admin Dose 1 TAB; Start 12/28/18 at 09:00 Oxcarbazepine (Trileptal) 900 mg BID PO Last administered on 01/02/19at 09:14; Admin Dose 900 MG; Start 12/27/18 at 21:00 Topiramate (Topamax) 200 mg BID PO Last administered on 01/02/19at 09:13; Admin Dose 200 MG; Start 12/27/18 at 21:00 Cholecalciferol (Vitamin D) 2,000 unit DAILY PO Last administered on 01/02/19 09:14; Admin Dose 2,000 UNIT; Start 12/28/18 at 09:00 Lorazepam (Ativan) 2 mg Q10M PRN IV seizure; Start 12/27/18 at 22:00 Docusate Sodium (Colace) 100 mg Q12H PO Last administered on 01/01/19 15:11; Admin Dose 100 MG; Start 12/29/18 at 16:00 Pantoprazole (Protonix Tab) 40 mg DAILY PO Last administered on 01/02/19 09:13; Admin Dose 40 MG; Start 12/30/18 at 09:00 Heparin Sodium (Porcine) (Heparin (5000 Units/1ml)) 5,000 unit BID SC Last ad ministered on 01/01/19 21:00; Admin Dose 5,000 UNIT; Start 12/29/18 at 21:00 Linagliptin (Tradjenta) 5 mg DAILY PO Last administered on 01/01/19 10:05; Admin Dose 5 MG; Start 12/30/18 at 09:00 Lactobacillus Acidophilus/ Rhamnosus (Culturelle) 1 cap BID PO Last administered on 01/02/19 09:14; Admin Dose 1 CAP; Start 12/29/18 at 11:30 Metoprolol Tartrate (Lopressor) 50 mg BID PO Last administered on 01/01/19 20:29; Admin Dose 50 MG; Start 12/29/18 at 21:00 Amiodarone HCl (Cordarone) 200 mg BID PO Last administered on 01/02/19 09:13; Admin Dose 200 MG; Start 12/31/18 at 09:00 Diltiazem HCl (Cardizem Iv) 5 mg Q1H PRN IV sustained HR>140; Start 12/31/18 at 12:30 Aspirin (Aspirin) 81 mg DAILY PO Last administered on 01/02/19 09:11; Admin Dose 81 MG; Start 01/01/19 at 09:30 Cefepime HCl 50 ml @ 100 mls/hr Q12 IVPB Last administered on 01/02/19 09:08; Admin Dose 100 MLS/HR; Start 01/01/19 at 17:30 Atorvastatin Calcium (Lipitor) 40 mg HS PO Last administered on 5/12/19at 20:26; Admin Dose 40 MG; Start 01/01/19 at 21:00 Taj Holloway DO January 02, 2019 12:29
--- NOTE | 2019-01-02 14:16 | CONS ---
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 He was noted on 12/27 to have a generalized convulsion that was self-limited, for which neurology is consulted. It is likely that his current infection is lowering his seizure threshold. MRI brain is incidentally notable for a small acute infarct in the L posterior temporal lobe. Noted to be in paroxysmal afib...the likely underlying etiology. Echo, CUS is unrevealing. LDL 56, ESR 40, RPR neg P: Cont ASA for secondary stroke prevention for the short term; LDL is at goal Hold asa and start eliquis for secondary stroke prevention in the context of afib, on 01/07 Ok to cont Trileptal and topamax per ops for now Ativan IV PRN prolonged seizure or for cluster PT/OT/ST as necessary Other medical management per primary Will follow clinically Consultation Date/Type/Reason Admit Date/Time December 27, 2018 at 13:57 Type of Consult Neurology Reason for Consultation breakthrough seizures Requesting Provider: STU KENNEDY Date/Time of Note DATE: 01/02/19 TIME: 14:12 24 HR Interval Summary Free Text/Dictation Continues acute care. Noted to have paroxysmal afib on tele. Exam Vital Signs Vitals Vital Signs Date Temp Pulse Resp B/P (MAP) Pulse Ox O2 O2 Flow FiO2 Time Delivery Rate 01/02/19 72 12:00 01/02/19 97.2 17 111/64 97 11:47 (80) 01/02/19 Nasal 2.0 08:30 Cannula 01/02/19 28 02:23 Intake and Output 01/01/19 01/01/19 01/02/19 1414:59 22:59 06:59 IntakeIntake Total 700 ml 400 ml BalanceBalance 700 ml 400 ml Exam PE: Gen Appearance: No Apparent Distress HEENT: Normocephalic Cardiovascular: Regular rate Lungs: Clear bilaterally Abdomen: Soft Extremities: Dry NE: The patient was awake and alert. Grossly oriented. Language was normal. Fund of knowledge was adequate. Pupils were equal and reactive to light. There was no afferent pupillary defect. Visual sahu were normal. Funduscopic examination was limited. Extra-ocular movements were full. Ptosis was absent. There was no nystagmus. Facial sensation was normal. Face was symmetric with normal strength. Hearing was intact. Palate movements were normal. Neck strength was normal. There was normal tongue bulk and speed of movement. Tone was normal. Muscle bulk was normal. I did not see fasciculations. Arms and legs were symmetric. Vibration sensation was normal. Temperature and pinprick sensation was normal. Rapid alternating movements were normal. There was no dysmetria. There was no intention tremor. Gait was deferred due to bedrest. Arm and leg reflexes were 2+ and symmetric. Cornejo's sign was absent. Plantar responses were flexor. NAZ MEDLEY NP January 02, 2019 14:16 CLARE LAMB January 03, 2019 06:40
[2019-01-02] MEDS: ATORVASTATIN 40 MG TAB PO SCH (21:24)
[2019-01-02] MEDS: METOPROLOL 25 MG TAB PO SCH (21:25)
[2019-01-03] VITALS (8 sets, daily range): BP systolic 99–120; BP diastolic 58–75; PULSE 56–66; RESP 17–20
[2019-01-03] MEDS: DOCUSATE SODIUM 100 MG CAP PO SCH ×2 (03:52→16:00)
[2019-01-03] MEDS: LINAGLIPTIN 5 MG TABLET PO SCH (09:00)
[2019-01-03] MEDS: METOPROLOL 25 MG TAB PO SCH (09:00)
[2019-01-03] MEDS: CEFEPIME 2GM/50 ML (PMX) 50 ML IVPB SCH (09:12)
[2019-01-03] MEDS: PANTOPRAZOLE (EC) 40 MG TAB PO SCH (09:12)
[2019-01-03] MEDS: CHOLECALCIFEROL 2,000 UNIT CAP PO SCH (09:13)
[2019-01-03] MEDS: LACTOBACILLUS RHAMNOSUS CAP PO SCH (09:18)
[2019-01-03] MEDS: FINASTERIDE 5 MG TAB PO SCH (09:18)
[2019-01-03] MEDS: ASPIRIN 81 MG TAB PO SCH (09:18)
[2019-01-03] MEDS: OXCARBAZEPINE 300 MG TAB PO SCH (09:18)
[2019-01-03] MEDS: MULTIVITAMINS THERAPEUTIC TAB PO SCH (09:18)
[2019-01-03] MEDS: AMIODARONE 200 MG TAB PO SCH (09:21)
[2019-01-03] MEDS: TOPIRAMATE 100 MG TAB PO SCH (09:22)
[2019-01-03] MEDS: HEPARIN 5,000 UNIT/1 ML VIAL SC SCH (09:47)
--- NOTE | 2019-01-03 11:50 | CONS ---
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 He was noted on 12/27 to have a generalized convulsion that was self-limited, for which neurology is consulted. It is likely that his current infection is lowering his seizure threshold. MRI brain is incidentally notable for a small acute infarct in the L posterior temporal lobe. Noted to be in paroxysmal afib...the likely underlying etiology. Echo, CUS is unrevealing. LDL 56, ESR 40, RPR neg P: Cont ASA for secondary stroke prevention for the short term; LDL is at goal Hold asa and start eliquis for secondary stroke prevention in the context of afib, on 01/07 Ok to cont Trileptal and topamax per ops for now Ativan IV PRN prolonged seizure or for cluster PT/OT/ST as necessary Other medical management per primary Will follow clinically Consultation Date/Type/Reason Admit Date/Time December 27, 2018 at 13:57 Type of Consult Neurology Reason for Consultation breakthrough seizures Requesting Provider: STU KENNEDY Date/Time of Note DATE: 01/03/19 TIME: 11:50 24 HR Interval Summary Free Text/Dictation Continues acute care. Possible discharge today. Exam Vital Signs Vitals Vital Signs Date Temp Pulse Resp B/P (MAP) Pulse Ox O2 O2 Flow FiO2 Time Delivery Rate 01/03/19 57 08:01 01/03/19 Nasal 2.0 08:00 Cannula 01/03/19 98.3 18 99/62 (74) 98 07:34 01/02/19 28 02:23 Intake and Output 01/02/19 01/02/19 01/03/19 1515:00 23:00 07:00 IntakeIntake Total 620 ml 60 ml BalanceBalance 620 ml 60 ml Exam PE: Gen Appearance: No Apparent Distress HEENT: Normocephalic Cardiovascular: Regular rate Lungs: Clear bilaterally Abdomen: Soft Extremities: Dry NE: The patient was awake and alert. Grossly oriented. Language was normal. Fund of knowledge was adequate. Pupils were equal and reactive to light. There was no afferent pupillary defect. Visual sahu were normal. Funduscopic examination was limited. Extra-ocular movements were full. Ptosis was absent. There was no nystagmus. Facial sensation was normal. Face was symmetric with normal strength. Hearing was intact. Palate movements were normal. Neck strength was normal. There was normal tongue bulk and speed of movement. Tone was normal. Muscle bulk was normal. I did not see fasciculations. Arms and legs were symmetric. Vibration sensation was normal. Temperature and pinprick sensation was normal. Rapid alternating movements were normal. There was no dysmetria. There was no intention tremor. Gait was deferred due to bedrest. Arm and leg reflexes were 2+ and symmetric. Cornejo's sign was absent. Plantar responses were flexor. NAZ MEDLEY NP January 03, 2019 11:50
--- NOTE | 2019-01-03 17:11 | CONS ---
Assessment/Plan Assessment/Plan Hospital Course (Demo Recall) SVT/paroxysmal atrial fibrillation Acute CVA Preserved left ventricular ejection fraction Mild to moderate mitral valve regurgitation Sepsis secondary to UTI Brain tumor Seizure disorder Diabetes Hypertension -Patient with acute CVA noted on MRI brain. As per neurology, okay to start anticoagulation on 01/07/2019. This was conveyed to the patient's given patient is being transferred to rehab today -Patient overall remains in sinus rhythm, decrease dose of beta-darby, decrease amiodarone to daily -Continue physical therapy -Plan of care and findings discussed with patient and at bedside Consultation Date/Type/Reason Admit Date/Time December 27, 2018 at 13:57 Initial Consult Date Type of Consult Cardiology Requesting Provider: STU KENNEDY Date/Time of Note DATE: 01/03/19 TIME: 17:08 24 HR Interval Summary Free Text/Dictation no sob, palp, cp. With ambulation, was having some difficulty and weakness Exam/Review of Systems Vital Signs Vitals Vital Signs Date Temp Pulse Resp B/P (MAP) Pulse Ox O2 O2 Flow FiO2 Time Delivery Rate 01/03/19 64 16:01 01/03/19 98.3 17 120/75 96 15:31 (90) 01/03/19 2.0 13:59 01/03/19 Nasal 08:00 Cannula 01/02/19 28 02:23 Intake and Output 01/02/19 01/02/19 01/03/19 1515:00 23:00 07:00 IntakeIntake Total 620 ml 60 ml BalanceBalance 620 ml 60 ml Exam Constitutional: alert, oriented (No apparent distress) Head: normocephalic Respiratory: other (Coarse breath sounds bilaterally, no wheezing) Cardiovascular: regular rate and rhythm (S1-S2 heard) Gastrointestinal: soft, non-tender, bowel sounds Extremities: edema (Trace) Labs Result Diagram: 01/02/19 0607 01/02/19 0607 Medications Medications Current Medications IV Flush (NS 3 ml) 3 ml PER PROTOCOL IV ; Start 12/27/18 at 16:00 Ondansetron HCl (Zofran Inj) 4 mg Q6H PRN IV NAUSEA/VOMITING; Start 12/27/18 at 16:00 Acetaminophen (Tylenol Tab) 650 mg Q6H PRN PO .PAIN 1-3 OR TEMP Last administered on 12/30/18 02:33; Admin Dose 650 MG; Start 12/27/18 at 16:00 Morphine Sulfate (morphine) 2 mg Q4H PRN IV .SEVERE PAIN 7-10; Start 12/27/18 at 16:00 Zolpidem Tartrate (Ambien) 5 mg QHS PRN PO .INSOMNIA; Start 12/27/18 at 16:00 Finasteride (Proscar) 5 mg DAILY PO Last administered on 01/03/19 09:18; Admin Dose 5 MG; Start 12/28/18 at 09:00 Multivitamins Therapeutic (Theragran) 1 tab DAILY PO Last administered on 01/03/19 09:18; Admin Dose 1 TAB; Start 12/28/18 at 09:00 Oxcarbazepine (Trileptal) 900 mg BID PO Last administered on 01/03/19 09:18; Admin Dose 900 MG; Start 12/27/18 at 21:00 Topiramate (Topamax) 200 mg BID PO Last administered on 01/03/19 09:22; Admin Dose 200 MG; Start 12/27/18 at 21:00 Cholecalciferol (Vitamin D) 2,000 unit DAILY PO Last administered on 01/03/19 09:13; Admin Dose 2,000 UNIT; Start 12/28/18 at 09:00 Lorazepam (Ativan) 2 mg Q10M PRN IV seizure; Start 12/27/18 at 22:00 Docusate Sodium (Colace) 100 mg Q12H PO Last administered on 01/03/19 03:52; Admin Dose 100 MG; Start 12/29/18 at 16:00 Pantoprazole (Protonix Tab) 40 mg DAILY PO Last administered on 01/03/19 09:12; Admin Dose 40 MG; Start 12/30/18 at 09:00 Heparin Sodium (Porcine) (Heparin (5000 Units/1ml)) 5,000 unit BID SC Last administered on 01/03/19 09:47; Admin Dose 5,000 UNIT; Start 12/29/18 at 21:00 Linagliptin (Tradjenta) 5 mg DAILY PO Last administered on 01/01/19 10:05; Admin Dose 5 MG; Start 12/30/18 at 09:00 Lactobacillus Acidophilus/ Rhamnosus (Culturelle) 1 cap BID PO Last administered on 01/03/19at 09:18; Admin Dose 1 CAP; Start 12/29/18 at 11:30 Diltiazem HCl (Cardizem Iv) 5 mg Q1H PRN IV sustained HR>140; Start 12/31/18 at 12:30 Cefepime HCl 50 ml @ 100 mls/hr Q12 IVPB Last administered on 01/03/19at 09:12; Admin Dose 100 MLS/HR; Start 01/01/19 at 17:30 Atorvastatin Calcium (Lipitor) 40 mg HS PO Last administered on 01/02/19at 21:24; Admin Dose 40 MG; Start 01/01/19 at 21:00 Amiodarone HCl (Cordarone) 200 mg DAILY PO ; Start 01/04/19 at 09:00 Metoprolol Tartrate (Lopressor) 12.5 mg BID PO ; Start 01/03/19 at 21:00 Aspirin (Aspirin) 81 mg DAILY PO ; Start 01/04/19 at 09:00 Taj Holloway DO January 03, 2019 17:11
[2019-01-03] MEDS ORDERED: APIXABAN 5 MG TABLET PO SCH (21:00)
[2019-01-03] MEDS ORDERED: METOPROLOL 25 MG TAB PO SCH (21:00)
--- NOTE | 2019-01-04 06:29 | DS ---
DATE OF ADMISSION: 12/27/2018 DATE OF DISCHARGE: 01/03/2019 ADDENDUM The patient's discharge was held yesterday because of logistics, making final arrangement and obtaining clearance from the consultants. At this time he has been cleared by cardiology and neurology. He has also be started on anticoagulation therapy. He is calmer. He is no longer confused or agitated and he is actually asking to be discharged and is asking relevant questions and giving relevant answers. I have also spoken with his in detail. Final diagnosis remains as summarized in my prior note. 1. S/p sepsis secondary to urinary tract infection. 2. New onset atrial fibrillation/SVT, paroxysmal with good rate control. 3. Acute cerebrovascular accident, 4. Anticoagulation therapy 5. S/p REDD 6. Chronic benign brain tumor, known meningioma per the family x 11years 7. Seizure disorder with good control. 8. Diabetes mellitus. 9. Hypertension. HOSPITAL COURSE: Please see my dictated report from 01/02/2019. CONSULTATIONS: Please also see my dictated report from 01/02/2019. FINAL DISCHARGE MEDICATIONS: Please review the patient's chart. DISCHARGE CONDITION: Stable. DISPOSITION: The patient is being discharge to a intermediate facility or rehab then transition to home. Time spent on discharge today has been about a half an hour. Dictated By: STU KENNEDY MD, BA/JUNI Conf#: [id number] DID#: [id number] MTDD
--- NOTE | 2019-01-04 06:29 | DS ---
DATE OF ADMISSION: 12/27/2018 DATE OF DISCHARGE: 01/03/2019 FINAL DIAGNOSIS: A 69-year-old male who had presented to us because of fevers and chills and had just seen his urologist a day prior to admission. The patient had a TURP done approximately about 2 months prior and had been having issues with reduced urine output and some suprapubic pain and had gone in to see his urologist. He was dilated in the office and also had a blood clot removed from his urethra, but developed chills and fever the next day and so was advised to come to the ER. He was managed as follows: 1. Sepsis secondary to urinary tract infection. -- Urine culture grew out Escherichia coli. 2. Patient also suffered acute encephalopathy secondary to #3, that is now resolved. The patient is still a bit more confused as compared to baseline, but is stable. 3. Acute cerebrovascular accident. 4. The patient was found to have small foci of the chart. He was found have left posterior temporal acute infarct on MRI. 5. Known meningioma, said to be benign. Patient is being monitored as an outpatient. 6. History of seizure disorder. 7. Diabetes mellitus. 8. Hypertension. 9. Multiple prior cerebellar lacunar infarct. 10. Mild to moderate mitral regurgitation. 11. New onset atrial fibrillation/svt. 12. Acute renal insufficiency, likely due to obstruction, now resolved. CONSULTS ON THE CASE. 1. Neurology, Dr. Daniela Gutiérrez. 1. Dr. Taj Holloway for cardiology. INTERVENTIONS: Please see hospital course to final Acute renal insufficiency. Likely due to obstruction, now resolved. HOSPITAL COURSE: Full details are available in chart for review. In summary, this 69-year-old male, as mentioned above, came to us a day after a visit to his neurologist and approximately about 2 months after he had a TURP after he had just been dilated and had a clot removed from his urethra in the office. He was initially admitted for sepsis secondary to urinary tract infection, started on empiric antibiotics as we awaited final culture results managed for his fever to resolve; however, his hospitalization became complicated by alteration of mental status where the patient became confused with confused speech and mildly aggressive behavior. The patient also had some renal insufficiency when he came in, but this improved with IV fluids only. We contacted his outpatient urologist to see if the patient needed a [place], but since his postvoid residuals were consistently less than 120. The urologist did not feel that he needed a de león except PVR went up to 250 or more then the patient will need to have the De Le[place] in. Due to his alteration in mental status Neurology consultation was obtained. Patient underwent workup with the use of a CT scan of the brain that showed a dense structure in the frontal horn of the lateral ventricle and no acute hemorrhage or mass lesion. It also showed chronic microangiopathic changes. Then, the patient had brain MRI that confirmed the presence of an acute posterior temporal stroke. As part of the stroke workup, the patient underwent carotid Doppler studies that showed no hemodynamically significant stenosis. He also underwent a 2D echo and that showed ejection fraction of 55% with mild to moderate mitral valve regurgitation. His hospitalization was complicated by tachycardia and an EKG was found to have an SVT versus atrial fibrillation. Based on this, cardiology consultation was obtained. Patient ruled out for an acute coronary syndrome. He was started on AV koffi blockers and eventually with beta draby and amiodarone therapy. The patient's heart rate is much more controlled at this time. Cardiology has recommended the patient be started on anticoagulation, but due to his history of having a benign brain tumor we needed a Neurology consultation. After review of the chart and discussion with the family Neurology cleared the patient for anticoagulation therapy 7 days after his stroke. Patient will be started on anticoagulation tomorrow and he will be also transferred to a [facility] facility for continued management and rehabilitation prior to being discharged home. The patient is quite debilitated and resides only at home with his , who is older herself and cannot care for him at this time. The patient has been assessed by myself in detail today and stable for discharge. DISCHARGE CONDITION: Stable. ACTIVITY: As tolerated, needs physical therapy and rehabilitation. MEDICATIONS For a complete list of discharge medications, please review the patient's chart. DIET: Recommended an 1800 calorie ADA diet. ACTIVITY: As tolerated. FOLLOWUP: The patient will be assigned physician at the nursing facility and he is recommended to follow up with cardiology as an outpatient. Also, the patient to complete a 2-week course of antibiotics for his urinary tract infection and follow up with his urologist, as an outpatient. Time spent on discharge coordination has been more than half an hour. Dictated By: STU KENNEDY MD, BA/JUNI Conf#: [id number] DID#: [id number] MTDD
[2019-01-04] MEDS ORDERED: ASPIRIN 81 MG TAB PO SCH (09:00)
[2019-01-04] MEDS ORDERED: AMIODARONE 200 MG TAB PO SCH (09:00)
== END 2019-01-03 18:51 | DRG 871 ==
LOC: E/R 12:00 → TEL 13:57
PROVIDERS: ADMIT Internal Medicine; ATTEND Family Medicine
DX: A41.51 Sepsis due to Escherichia coli [E. coli] (principal); G92 Toxic encephalopathy; I63.9 Cerebral infarction, unspecified; N39.0 Urinary tract infection, site not specified; I47.1 Supraventricular tachycardia; N17.9 Acute kidney failure, unspecified; R65.20 Severe sepsis without septic shock; I10 Essential (primary) hypertension; E78.00 Pure hypercholesterolemia, unspecified; M81.0 Age-related osteoporosis without current pathological fracture; E83.39 Other disorders of phosphorus metabolism; G40.409 Other generalized epilepsy and epileptic syndromes, not intractable, without status epilepticus; I48.0 Paroxysmal atrial fibrillation; I34.0 Nonrheumatic mitral (valve) insufficiency; E11.9 Type 2 diabetes mellitus without complications; Z86.011 Personal history of benign neoplasm of the brain; Z86.73 Personal history of transient ischemic attack (TIA), and cerebral infarction without residual deficits; Z87.891 Personal history of nicotine dependence
CPT/HCPCS: 36415; 70450; 70551; 71045; 76775; 80048; 80053; 80061; 81001; 82550; 82553; 82962; 83036; 83605; 83690; 83735; 84100; 84484; 85025; 85610; 85651; 85730; 86592; 87086; 93005; 93306; 93880; 96361; 96365; 97116; 97162; 97530; J0282; J0692; J0696; J1644; J1940; J3475; J7030; J7050; J7060